=== PATIENT | male | born 1955 | race Caucasian/White ===

== ENCOUNTER 2020-03-19 08:46 | Outpatient (REF) | payer MEDICARE, OTHER, SELFPAY ==
[2020-03-19 10:03] LABS: MANUAL DIFF FLAG NO
[2020-03-19 10:12] LABS: Basophils Percent Auto 0.9 % (0-2); Eosinophils Absolute Auto 0.7 X10*3/uL (0.0-0.4); Eosinophils Percent Auto 14.6 % (0-4); Hematocrit 38.7 % (42-52); Hemoglobin 12.9 g/dl (14.0-18.0); Imm Gran Abs Auto 0.01 X10*3/uL (0.00-0.03); Imm Gran Pct Auto 0.2 % (0.0-0.4); Lymphocytes Absolute Auto 1.2 X10*3/uL (1.2-4.9); Lymphocytes Percent Auto 26.4 % (20-40); Mean Corpuscular HGB Conc 33.3 g/dl (31.0-36.0); Mean Corpuscular Hemoglobin 30.7 pg (27.0-33.0); Mean Corpuscular Volume 92.1 fL (80-98); Mean Platelet Volume 11.9 fL (9.4-12.4); Monocytes Absolute Auto 0.5 X10*3/uL (0.1-1.2); Monocytes Percent Auto 11.6 % (2-11); Neutrophils Absolute Auto 2.1 X10*3/uL (2.0-8.3); Neutrophils Percent Auto 46.3 % (45-73); Platelet Count 173 X10*3/uL (160-400); Red Cell Distribution Width 12.2 % (11.0-16.0); White Blood Count 4.6 X10*3/uL (4.8-10.8)
[2020-03-19 10:47] LABS: Alanine Aminotransferase 38 U/L (0-40); Alkaline Phosphatase 269 U/L (39-117); Anion Gap 9 (12-20); Aspartate Amino Transferase 31 U/L (5-37); Bilirubin Total 0.7 mg/dL (0.0-1.0); Blood Urea Nitrogen 17 mg/dL (9-16); Calcium 8.6 mg/dL (8.4-10.2); Carbon Dioxide 31 mmol/L (22-29); Chloride 106 mmol/L (96-108); Cholesterol 141 mg/dL; Estimated Glomerular Filt Rate > 60; Glucose Fasting 113 mg/dL (60-99); HDL Cholesterol 35 mg/dL; LDL Cholesterol Calculated 85 mg/dl; Potassium 4.3 mmol/L (3.3-5.1); Sodium 142 mmol/L (135-145); Total Protein 6.8 g/dL (6.5-8.0); Triglycerides 106 mg/dL
[2020-03-19 11:06] LABS: Free T4 (Free Thyroxine) 0.86 ng/dL (0.71-1.85); Prostate Specific Antigen Scr 0.83 ng/mL (<0.05-4.0)
== END 2020-03-19 08:47 | disposition home or self-care (01) ==
LOC: HO.10HDL 08:46
PROVIDERS: Visit Provider Internal Medicine
DX: I48.0 Paroxysmal atrial fibrillation (principal); I10 Essential (primary) hypertension; R35.1 Nocturia; E78.5 Hyperlipidemia, unspecified; Z12.5 Encounter for screening for malignant neoplasm of prostate
CPT/HCPCS: 36415; 80053; 80061; 84153; 84439; 84443; 85025

== ENCOUNTER → 2020-04-08 13:24 | Outpatient (REF) | payer MEDICARE, OTHER, SELFPAY ==
--- NOTE | 2020-04-08 13:35 | ECG_ITS ---
Hook-up date: 2020-04-08 13:45:00 Duration: 26:00:00 Test Indications: PALPITATIONS Medications: 59720 QRS complexes 141 Ventricular ectopics which represent <1 % of total QRS comp. 1016 Supraventricular ectopics which represent 1 % of total QRS comp. * Paced QRS complexs which represent % of total QRS comp. VENTRICULAR ECTOPY 132 Isolated 0 Bigeminal Cycles 3 Couplets 1 Runs 3 Beats in Runs 3 Beats LONGEST at 189 BPM at 15:59:26 2020-04-08 3 Beats FASTEST at 189 BPM at 15:59:26 2020-04-08 SUPRAVENTRICULAR ECTOPY 960 Isolated 14 Couplets 6 Runs 28 Beats in Runs 7 Beats LONGEST at 128 BPM at 22:44:03 2020-04-08 7 Beats FASTEST at 145 BPM at 06:05:24 2020-04-09 HEART RATES 45 MIN at 04:40:02 2020-04-09 63 AVG 111 MAX at 06:41:11 2020-04-09 LONGEST RR 1.4960 secs at 04:39:56 2020-04-09 S-T LEVELS Channel 1 - 128 mm at 13:45:00 2020-04-08 - 128 mm at 13:45:00 2020-04-08 Channel 2 - 128 mm at 13:45:00 2020-04-08 - 128 mm at 13:45:00 2020-04-08 Channel 3 - 128 mm at 03:30:41 -- - 128 mm at 03:30:41 pt c/o palp. Baseline rhythm is sinus. min hr is 45 and max hr is 111 Occ PVC's noted, one couplet and one triplet. Several short bursts of SVT noted-one of 5 beats;two of 7 beats; no diary entries wewre provided with this study. In summary, occ PVC's and short runs of PAC's were recorded without reported symptoms. no sustained prolonged symptomatic events thtat would require intervention. Continue to follow for any symptoms but no intervention at this time Referred By: Chito Walters Overread By: NASIR WALTERS MD
== END ==
LOC: HO.CARD 13:24
PROVIDERS: PCP Internal Medicine; Visit Provider Internal Medicine
DX: R00.2 Palpitations (principal)
CPT/HCPCS: 93225; 93226

== ENCOUNTER 2020-09-15 13:50 | Outpatient (REF) | payer MEDICARE, OTHER, SELFPAY ==
[2020-09-15 14:53] LABS: Estimated Average Glucose 126 mg/dL
[2020-09-15 15:07] LABS: Anion Gap 12 (12-20); Blood Urea Nitrogen 15 mg/dL (9-16); Calcium 9.2 mg/dL (8.4-10.2); Carbon Dioxide 26 mmol/L (22-29); Chloride 108 mmol/L (96-108); Estimated Glomerular Filt Rate > 60; Glucose Random 84 mg/dL (60-115); Potassium 4.4 mmol/L (3.3-5.1); Sodium 142 mmol/L (135-145)
== END 2020-09-15 13:51 | disposition home or self-care (01) ==
LOC: HO.LAB 13:50
PROVIDERS: PCP Internal Medicine; Visit Provider Internal Medicine
DX: I10 Essential (primary) hypertension (principal); R73.03 Prediabetes
CPT/HCPCS: 36415; 80048; 83036

== ENCOUNTER → 2021-07-06 08:05 | Outpatient (BNVA) | payer MEDICARE, OTHER, SELFPAY | PROVIDERS: PCP Internal Medicine; Visit Provider Orthopaedic Surgery | DX: M67.442 Ganglion, left hand (principal) | CPT/HCPCS: 20612; 99202 ==

== ENCOUNTER 2021-07-07 11:31 | Outpatient (REF) | payer MEDICARE, OTHER, SELFPAY ==
[2021-07-07 11:46] LABS: MANUAL DIFF FLAG NO
[2021-07-07 12:06] LABS: Basophils Percent Auto 0.5 % (0-2); Eosinophils Absolute Auto 0.2 X10*3/uL (0.0-0.4); Eosinophils Percent Auto 5.9 % (0-4); Hematocrit 40.4 % (42.0-52.0); Hemoglobin 13.4 g/dl (14.0-18.0); Lymphocytes Absolute Auto 1.1 X10*3/uL (1.2-4.9); Lymphocytes Percent Auto 29.9 % (20-40); Mean Corpuscular HGB Conc 33.2 g/dl (31.0-36.0); Mean Corpuscular Volume 93.5 fL (80.0-98.0); Mean Platelet Volume 11.5 fL (9.4-12.4); Monocytes Absolute Auto 0.6 X10*3/uL (0.1-1.2); Monocytes Percent Auto 17.1 % (2-11); Neutrophils Absolute Auto 1.7 x10*3/uL (2.0-8.3); Neutrophils Percent Auto 46.6 % (45-73); Platelet Count 194 X10*3/uL (160-400); Red Blood Count 4.32 X10*6/uL (4.60-5.80); Red Cell Distribution Width 12.7 % (11.0-16.0); White Blood Count 3.7 X10*3/uL (4.8-10.8)
[2021-07-07 12:36] LABS: Alanine Aminotransferase 32 U/L (0-40); Alkaline Phosphatase 279 U/L (39-117); Anion Gap 11 (12-20); Aspartate Amino Transferase 31 U/L (5-37); Bilirubin Total 0.5 mg/dL (0.0-1.0); Blood Urea Nitrogen 15 mg/dL (9-16); Calcium 9.6 mg/dL (8.4-10.2); Carbon Dioxide 31 mmol/L (22-29); Chloride 106 mmol/L (96-108); Cholesterol 138 mg/dL; Estimated Glomerular Filt Rate > 60; Glucose Fasting 108 mg/dL (60-99); HDL Cholesterol 36 mg/dL; LDL Cholesterol Calculated 85 mg/dl; Potassium 4.2 mmol/L (3.3-5.1); Sodium 144 mmol/L (135-145); Total Protein 7.2 g/dL (6.5-8.0); Triglycerides 87 mg/dL
[2021-07-07 12:55] LABS: Prostate Specific Antigen 1.11 ng/mL (<0.05-4.0)
== END 2021-07-07 11:32 | disposition home or self-care (01) ==
LOC: HO.LAB 11:31
PROVIDERS: PCP Internal Medicine; Visit Provider Internal Medicine
DX: Z12.5 Encounter for screening for malignant neoplasm of prostate (principal); E78.00 Pure hypercholesterolemia, unspecified; I10 Essential (primary) hypertension; I48.91 Unspecified atrial fibrillation
CPT/HCPCS: 36415; 80053; 80061; 84153; 85025

== ENCOUNTER 2021-08-22 10:32 | Day surgery (SDC) | payer MEDICARE, OTHER, SELFPAY ==
[2021-08-22 12:53] VITALS: BP 151/75; PULSE 57; RESP 16; TEMP 36.6; O2SAT 97; BMI 30.9
--- NOTE | 2021-08-22 13:47 | MHC.SHP ---
Pre-Procedural Eval Section A Date of Service: 08/22/21 The patient is an INPATIENT: No Changes since office visit: No Cold of Flu in the past 2 weeks, No New Medical Problems, No Changes in Medication and No Patient answered all questions The History & Physical has been completed within 30 days and I have reviewed it.: Yes Section B Chief Complaint: Localized swelling, mass and lump, left upper limb Allergies: Allergies Allergy/AdvReac Type Severity Reaction Status Date / Time No Known Allergies Allergy Unverified 07/06/21 08:11 [No Known Allergies*] Plan I have reviewed the history and physical and performed a pertinent physical examination on my patient. No changes have occurred unless specified.
--- NOTE | 2021-08-22 13:48 | P.OP_ITS ---
Operative Note Operative Note Date of Service: 08/22/21 Narrative: Operative Note Preop diagnosis: 1. left ring finger dorsal soft tissue mass Postop diagnosis: same Procedure: 1. left ring finger dorsal soft tissue mass excisional biopsy Surgeon: Krista Zaidi MD Anesthesia: digital block using 1% lidocaine with epinephrine Findings: soft tissue mass measuring approximately 6 mm in diameter by perhaps 8 mm in length EBL: Less than 5 mL Tourniquet time: None Specimens: left ring finger dorsal soft tissue mass sent for histopathology Complications: None Disposition: Brought to recovery room in stable condition Plan: Follow-up for 7-10 days for wound check and suture removal and to check pathology Indications: The patient is 66 years old, with a left ring finger dorsal soft tissue mass . The risks and benefits of operative treatment including but not limited to risk of damage to blood vessels, nerves, tendons, infection, persistent pain, persistent symptoms, recurrence or possible need for additional surgery were discussed with the patient and the patient wishes to proceed with surgery. Procedure: Once consent was obtained a digital block was performed in the preop area using a combination of 1% lidocaine with epinephrine. The patient was then brought back to the operating suite and placed on the operative table in supine position. A tourniquet was applied to the proximal aspect of the left upper extremity and the limb was prepped and draped in a standard surgical fashion. Once assured that we had a good block, I made a 1.5 cm longitudinally oriented and slightly curved incision over the dorsal radial aspect of the patient's left ring finger extending from the PIP joint proximally. Incision was made through the skin to the subcutaneous tissues using a 15. Blade. I then carefully dissected down to the level of the mass. Was approximately 67 mm in diameter and about 8 mm in length. There was some clear viscous fluid most consistent with a ganglion. It appeared to have a stalk coming from beneath the extensor mechanism on its radial edge, Just proximal to the PIP joint. the mass was carefully dissected from the surrounding tissues, and amputated at its stalk. The mass was placed on the back table to be sent for histopathology. Once satisfied with Our excisional biopsy the wound was copiously irrigated with normal saline and hemostasis was obtained with a brief period of local pressure. The skin edges were reapproximated with some 5.0 nylon suture material and a sterile dressing was applied. The patient appears to have tolerated the procedure well and with no complicati ons. All digits were well vascularized at the conclusion of the case.
== END 2021-08-22 14:33 | disposition home or self-care (01) ==
PROVIDERS: PCP Internal Medicine; Visit Provider Orthopaedic Surgery
PROC: (CPT 26160; principal; 2021-08-22 12:00)
DX: M67.442 Ganglion, left hand (principal); I10 Essential (primary) hypertension; E78.00 Pure hypercholesterolemia, unspecified
CPT/HCPCS: 26160; 88304; J0171

== ENCOUNTER 2022-02-20 07:42 | Outpatient (REF) | payer MEDICARE, OTHER, SELFPAY ==
[2022-02-20 08:09] LABS: MANUAL DIFF FLAG NO
[2022-02-20 08:30] LABS: Basophils Percent Auto 0.8 % (0-2); Eosinophils Absolute Auto 0.3 X10*3/uL (0.0-0.4); Eosinophils Percent Auto 7.8 % (0-4); Hematocrit 39.7 % (42.0-52.0); Hemoglobin 13.4 g/dl (14.0-18.0); Imm Gran Abs Auto 0.01 X10*3/uL (0.00-0.03); Imm Gran Pct Auto 0.3 % (0.0-0.4); Lymphocytes Absolute Auto 1.4 X10*3/uL (1.2-4.9); Lymphocytes Percent Auto 36.4 % (20-40); Mean Corpuscular HGB Conc 33.8 g/dl (31.0-36.0); Mean Corpuscular Hemoglobin 30.6 pg (27.0-33.0); Mean Corpuscular Volume 90.6 fL (80.0-98.0); Mean Platelet Volume 11.8 fL (9.4-12.4); Monocytes Absolute Auto 0.4 X10*3/uL (0.1-1.2); Monocytes Percent Auto 10.4 % (2-11); Neutrophils Absolute Auto 1.7 x10*3/uL (2.0-8.3); Neutrophils Percent Auto 44.3 % (45-73); Platelet Count 176 X10*3/uL (160-400); Red Blood Count 4.38 X10*6/uL (4.60-5.80); White Blood Count 3.9 X10*3/uL (4.8-10.8)
[2022-02-20 09:09] LABS: Alanine Aminotransferase 27 U/L (0-40); Albumin Level 4.1 g/dL (3.5-5.0); Alkaline Phosphatase 282 U/L (39-117); Aspartate Amino Transferase 23 U/L (5-37); Bilirubin Direct 0.2 mg/dL (0.0-0.5); Bilirubin Total 0.6 mg/dL (0.0-1.0); Gamma Glutamyl Transpeptidase 21 U/L (11-51); Iron 77 mcg/dL (45-160); Percent Iron Saturation 24 % (15-50); Total Iron Binding Capacity 325 mcg/dL (228-428); Unsaturated Iron Binding 248 ug/dL
[2022-02-20 09:14] LABS: Ferritin 17 ng/mL (20-250)
[2022-02-20 09:21] LABS: Prothrombin Time 11.7 SEC (10.0-13.1)
[2022-02-20 09:22] LABS: HBS Num1 0.17 mIU/mL (0-7.99); HBc Num1 0.08 S/CO (0.00-0.79); HBsAGNum1 0.37 S/CO (0.00-0.99); Hepatitis B Core Antibody Nonreactive (Nonreactive); Hepatitis B Surface Antigen Negative (Negative); ~Hepatitis B Surface Antibody NONREACTIVE (Nonreactive)
[2022-02-22 13:33] LABS: Anti Nuclear Antibody Screen NEGATIVE (NEGATIVE)
[2022-02-22 14:33] LABS: Alpha 1 Anti-trypsin 133 mg/dL (83-199)
[2022-02-24 14:22] LABS: Smooth Muscle Antibody <20 U (<20)
[2022-02-24 15:45] LABS: Mitochondrial Antibodies NEGATIVE (NEGATIVE)
[2022-02-24 16:03] LABS: FIB-ALT 24 U/L (9-46); FIB-Alpha-2-Macroglobulin 158 mg/dL (106-279); FIB-Apolipoprotein A1 147 mg/dL (94-176); FIB-GGT 17 U/L (3-70); FIB-Haptoglobin 93 mg/dL (43-212); FIB-Total Bilirubin 0.5 mg/dL (0.2-1.2); Liver Fibrosis Score 0.22; Liver Fibrosis Stage F0-F1; Nec Inflam Act Grade A0; Nec Inflam Act Score 0.09
[2022-02-25 14:47] LABS: Alk.Phos Iso. Macrohepatic 0 % (<=0); Alk.Phos Isoenzymes Bone 66 % (28-66); Alk.Phos Isoenzymes Intest 0 % (1-24); Alk.Phos Isoenzymes Liver 34 % (25-69); Alk.Phos Isoenzymes Placental 0 % (<=0); Alk.Phos Isoenzymes Total 240 U/L (35-144)
== END 2022-02-20 07:43 | disposition home or self-care (01) ==
LOC: HO.LAB 07:42
PROVIDERS: PCP Internal Medicine; Visit Provider Internal Medicine
DX: R74.8 Abnormal levels of other serum enzymes (principal); R79.89 Other specified abnormal findings of blood chemistry; R94.5 Abnormal results of liver function studies; Z11.59 Encounter for screening for other viral diseases
CPT/HCPCS: 36415; 80076; 81596; 82103; 82728; 82977; 83540; 84080; 85025; 85610; 86015; 86038; 86039; 86255; 86256; 86704; 86706; 87340

== ENCOUNTER 2022-02-24 09:19 | Outpatient (REF) | payer MEDICARE, OTHER, SELFPAY ==
--- NOTE | ~2022-02-24 | US_ITS ---
EXAMINATION: US COMPLETE ABDOMEN WITH LIVER ELASTOGRAPHY CLINICAL INFORMATION: Elevated alkaline phosphatase level. COMPARISON: None. TECHNIQUE: Real-time imaging of the abdominal viscera. Noninvasive ultrasound liver fibrosis assessment is performed using Kathryn ElastPQ point quantification shear wave elastography (2D-SWE) with a C5-2 MHz transducer. Multiple elastography samples are obtained. FINDINGS: PANCREAS: Limited. The visualized pancreatic head and proximal body are normal in appearance. The remainder of the pancreas is obscured from visualization by the overlying bowel gas. ABDOMINAL AORTA: The proximal, middle, and distal aortic segments are normal in caliber. INFERIOR VENA CAVA: Visualized portions are normal. LIVER: Normal. The liver demonstrates normal size, contour and echogenicity. No focal lesion or intrahepatic biliary duct dilatation. The right lobe measures 16.1 cm in length. The left lobe measures 10.5 cm in length. Portal flow is towards the liver (hepatopetal). Shear wave liver elastography median stiffness is 1.37 m/s (reference: normal median stiffness is 1.3 m/s or less). IQR/median stiffness to assess sampling precision is 0.15 (reference: good quality data set is IQR/median stiffness of 0.15 or less). GALLBLADDER: Normal. The gallbladder is physiologically distended without evidence of stones, sludge, polyps, wall thickening or pericholecystic fluid. COMMON BILE DUCT: Normal in caliber measuring 0.2 cm in diameter. RIGHT KIDNEY: At the upper pole, a 1.4 cm in maximal diameter anechoic, simple cyst is seen. No hydronephrosis. No renal calculi or focal parenchymal lesions. The kidney measures 10.4 cm in maximum dimension. LEFT KIDNEY: At the upper pole, a 2.1 cm in maximal diameter anechoic, simple cyst is seen. No hydronephrosis. No renal calculi or focal parenchymal lesions. The kidney measures 11.2 cm in maximum dimension. SPLEEN: Normal. The spleen measures 10.2 cm in maximum dimension. FREE FLUID: None. US/US abdomen comp w elastography IMPRESSION: 1. There is generalized increase in hepatic echotexture, consistent with fatty infiltration or hepatocellular disease. Please correlate clinically. No focal hepatic mass or intrahepatic biliary dilatation is seen. 2. Liver elastography: In the absence of other known clinical signs, measurements rule out compensated advanced chronic liver disease. If there are known clinical signs, further testing may be needed for confirmation. 3. Benign, simple bilateral renal cysts are incidentally noted. No imaging follow-up is recommended for these. 4. Technically limited ultrasound examination, in particular of the pancreatic tail. REFERENCE: Society of Radiologists in Ultrasound Liver Stiffness Thresholds (2020): LIVER STIFFNESS THRESHOLDS: *Liver Stiffness equal or less than 1.3 m/s: High probability of being normal. *Liver Stiffness less than 1.7 m/s: In the absence of other known clinical signs, rules out compensated advanced chronic liver disease. *Liver Stiffness 1.7-2.1 m/s: Suggestive of compensated advanced chronic liver disease but need further test for confirmation. *Liver Stiffness over 2.1 m/s: Rules in compensated advanced chronic liver disease. *Liver Stiffness over 2.4 m/s: Suggestive of clinically significant portal hypertension. QUALITY OF DATA SET: *IQR/Median value equal or less than 0.15 implies a quality data set. *IQR/Median value over 0.15 implies a poor quality data set. SIGNIFICANT CHANGE FROM PRIOR EXAM: Significant change if liver stiffness measurement is 10% or greater from prior exam. OTHER CONSIDERATIONS: The stage of liver fibrosis may be overestimated in the setting of acute hepatitis, liver inflammation, elevated liver function tests, hepatic vascular congestion, obstructive cholestasis, non-fasting state, and infiltrative diseases such as amyloidosis and lymphoma. In some patients with NAFLD, the liver stiffness thresholds for compensated advanced chronic liver disease may be lower. In causes other than viral hepatitis and NAFLD, liver stiffness thresholds are not well established.
== END 2022-02-24 09:20 | disposition home or self-care (01) ==
LOC: HO.US 09:19
PROVIDERS: PCP Internal Medicine; Visit Provider Internal Medicine
DX: R74.8 Abnormal levels of other serum enzymes (principal)
CPT/HCPCS: 76705; 76981

== ENCOUNTER 2022-03-13 08:24 | Day surgery (SDC) | payer MEDICARE, OTHER, SELFPAY ==
--- NOTE | 2022-03-10 12:33 | P.CONAN_ITS ---
Documented by User: Qi Judge NP 03/10/22 12:40 HPI - Anesthesia Eval Consult details Narrative: 66yo M for Colonoscopy Afib s/p ablation, no OAC now PMFSH Active Problems Active Problems: All Active Problems (Updated 07/06/21 @ 09:20 by Krista Zaidi MD) Ganglion cyst of finger of left hand (Acute) Past Medical History Medical History Afib Depression High blood pressure High cholesterol EDD (obstructive sleep apnea) Social History Social History Patient Tobacco Use Status: Never used Tobacco Use of substances other than those prescribed or required for medical reasons: No Are you DNR?: No Advance Directives: No Advance Directives Information Provided: Yes Current occupational 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: 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 Allergies Allergy/AdvReac Type Severity Reaction Status Date / Time No Known Allergies Allergy Verified 03/13/22 08:31 [No Known Allergies*] Home Medications Medication Instructions Recorded Confirmed Last Taken Type amlodipine 5 mg tablet 5 mg PO DAILY 07/06/21 03/13/22 03/13/22 History atorvastatin 20 mg tablet 20 mg PO DAILY 07/06/21 03/13/22 Unknown History citalopram 10 mg tablet 10 mg PO DAILY 07/06/21 03/13/22 Unknown History hydrochlorothiazide 12.5 mg tablet 12.5 mg PO DAILY 07/06/21 03/13/22 Unknown History lisinopril 20 mg tablet 20 mg PO BID 07/06/21 03/13/22 03/13/22 History Exam Exam Date and Time: March 10, 2022 1233 Pertinent Lab Results Pertinent Lab Results: Laboratory Tests 07/07/21 02/20/22 11:44 08:08 WBC 3.9 L Hgb 13.4 L Hct 39.7 L Plt Count 176 Sodium 144 Potassium 4.2 Chloride 106 Carbon Dioxide 31 H BUN 15 Creatinine 0.84 Assessment and Plan Assessment Anesthesia Assessment: Chart Reviewed Documented by User: Desiree Perera MD 03/13/22 09:04 [facility] Past Medical History Medical History Afib Depression High blood pressure High cholesterol EDD (obstructive sleep apnea) Functional capacity: independent ambulation Family History Family history of problems with anesthesia: No Surgical History History of Problems with Anesthesia: No Social History Social History Patient Tobacco Use Status: Never used Tobacco Use of substances other than those prescribed or required for medical reasons: No Are you DNR?: No Advance Directives: No Advance Directives Information Provided: Yes Current occupational status: 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[employer] Allergies Allergy/AdvReac Type Severity Reaction Status Date / Time No Known Allergies Allergy Verified 03/13/22 08:31 [No Known Allergies*] Home Medications Medication Instructions Recorded Confirmed Last Taken Type amlodipine 5 mg tablet 5 mg PO DAILY 07/06/21 03/13/22 03/13/22 History atorvastatin 20 mg tablet 20 mg PO DAILY 07/06/21 03/13/22 Unknown History citalopram 10 mg tablet 10 mg PO DAILY 07/06/21 03/13/22 Unknown History hydrochlorothiazide 12.5 mg tablet 12.5 mg PO DAILY 07/06/21 03/13/22 Unknown History lisinopril 20 mg tablet 20 mg PO BID 07/06/21 03/13/22 03/13/22 History Exam Airway Mallampati Class: II TM Dist: >3cm Neck ROM: Full Heart: RRR Lungs: CTA Assessment and Plan Final Anesthetic Review Family History of Problems with Anesthesia: No History of Problems with Anesthesia: No ASA Class: II Final Preanesthetic Review: No Changes in Pt Med Stat, Meds/Allgs Chart Reviewed, Consent Obtained/Reviewed and Anes Risks/Benef Reviewed Patient Risk: Low Procedure Risk: Low Anesthetic Plan Anesthetic Plan: MAC: Disposition: Standard PACU
[2022-03-13 08:33] VITALS: BMI 30.5
[2022-03-13 08:42] VITALS: BP 139/79; PULSE 59; RESP 16; TEMP 36.3; O2SAT 96
[2022-03-13] MEDS: Lactated Ringers 1,000 ML 100 ML IVCONT (08:55)
[2022-03-13 10:41] VITALS: BP 93/54; PULSE 51; RESP 16; TEMP 36.2; O2SAT 95
--- NOTE | 2022-03-13 10:45 | PM.OP ---
Brief Operative Note Date of Service: 03/13/22 Pre-op diagnosis: Screening Post-op diagnosis: other (Polyp) Procedure: Colonoscopy to the cecum and TI with biopsy and removal of polyp Surgeon: Wade Das Anesthesia: MAC Was an Director Of Front Office used for this Procedure?: No Estimated blood loss (mL): 2.0 Pathology: other (A. Transverse colon polyp) Condition: stable Disposition: PACU
[2022-03-13 10:57] VITALS: BP 125/70; PULSE 57; RESP 16; O2SAT 95
[2022-03-13 11:12] VITALS: BP 127/68; PULSE 50; RESP 16; TEMP 36.3; O2SAT 96
--- NOTE | 2022-03-13 11:43 | HO.POSTANES ---
Post Anesthesia Evaluation Post Anesthesia Evaluation Vital Signs: Vital Signs Temp Pulse Resp BP Pulse Ox O2 Del Method 03/13/22 11:12 97.4 F 50 16 127/68 96 Room Air 03/13/22 10:57 57 16 125/70 95 Room Air 03/13/22 10:41 97.1 F 51 16 93/54 L 95 Room Air 03/13/22 08:42 97.4 F 59 16 139/79 96 Room Air Anesthesia: Monitored Mental Status: Awake Pain Control: Satisfactory Nausea/Vomiting: None Hydration: Adequate Anesthesia-Related Issues: No Anes. Related Issues
--- NOTE | 2022-03-13 12:20 | OP_ITS ---
SURGEON: Wade Das MD INDICATIONS: The patient presents for evaluation of colorectal cancer screening and personal history of tubular adenomas of the colon. Full consent has been obtained from him for this, including risks of bleeding and perforation. PREOPERATIVE DIAGNOSIS: POSTOPERATIVE DIAGNOSIS: PROCEDURE PERFORMED: ESTIMATED BLOOD LOSS: COMPLICATIONS: ANESTHESIA: Monitored anesthesia care. ASSISTANTS: SPECIMENS: PROCEDURE: Colonoscopy to the cecum and terminal ileum with biopsy and removal of polyp PREOPERATIVE DIAGNOSES: Colorectal cancer screening and personal history of tubular adenomas of the colon. POSTOPERATIVE DIAGNOSES: Colorectal cancer screening and personal history of tubular adenomas of the colon, small colon polyp, diverticulosis and internal hemorrhoids. PROCEDURE IN DETAIL: The patient was placed in left lateral decubitus position. The digital rectal exam revealed no abnormalities. The Olympus video pediatric colonoscope was entered into the rectum and advanced easily to the cecum. Once in the cecum, I did identify a normal appearing cecal pouch with the appendicial orifice and normal appearing ileocecal valve. The terminal ileum was cannulated and appeared normal. The scope was withdrawn back in the colon. The entire cecum and ileocecal valve appeared normal. The scope was then slowly withdrawn assessing all mucosal surfaces carefully. Preparation was excellent. In the transverse colon was a flat approximately 4-mm polyp which was biopsied and completely removed with the cold biopsy forceps. I did not visualize any other polyps, colitis, nor angiodysplasias.. There was a moderate amount of sigmoid diverticulosis. In the rectum, the scope was retroflexed, visualizing internal hemorrhoids, but no other pathology. The rectal mucosa appeared normal. The scope was straightened and withdrawn from the patient. He tolerated the procedure well and was returned to the recovery area in stable condition. IMPRESSION: 1. Small colon polyp. 2. Diverticulosis. 3. Internal hemorrhoids. PLAN: The results of the biopsy will be checked. I would recommend a repeat colonoscopy in 5 years. Of note, he did have a workup recently for an elevated alkaline phosphatase. This does not appear to be related to his liver, given the normal GGTP and alkaline phosphatase isoenzymes showing the upper limit of normal from the bony portion. He did have an ultrasound of the liver which was also unremarkable. The other liver enzymes are all normal besides the alkaline phosphatase. He did have a complete liver workup that was otherwise negative as well. As such I did advise him to follow up with Dr. Lao regarding any other workup that might be needed in regard to the elevated alkaline phosphatase and possible bone disease, even though he is asymptomatic in regard to any bone pain or other musculoskeletal issues. This has all been discussed with his and she was given copies of some of his pertinent labs. MD ANDRA Vogel/KARISHMA / [id number] MTDD
== END 2022-03-13 11:46 | disposition home or self-care (01) ==
PROVIDERS: PCP Internal Medicine; Visit Provider Internal Medicine
PROC: 0DJD8ZZ Inspection of Lower Intestinal Tract, Via Natural or Artificial Opening Endoscopic (ICD-10-PCS; CPT 45378; principal; 2022-03-13 09:30)
DX: Z12.11 Encounter for screening for malignant neoplasm of colon (principal); K63.5 Polyp of colon; Z86.010 Personal history of colon polyps; K57.30 Diverticulosis of large intestine without perforation or abscess without bleeding; K64.8 Other hemorrhoids; R74.8 Abnormal levels of other serum enzymes
CPT/HCPCS: 45380; 88305

== ENCOUNTER 2022-09-11 10:04 | Outpatient (REF) | payer MEDICARE, OTHER, SELFPAY ==
[2022-09-11 10:35] LABS: MANUAL DIFF FLAG NO
[2022-09-11 10:42] LABS: Basophils Percent Auto 0.6 % (0-2); Eosinophils Absolute Auto 0.3 X10*3/uL (0.0-0.4); Hematocrit 40.6 % (42.0-52.0); Hemoglobin 13.5 g/dl (14.0-18.0); Imm Gran Abs Auto 0.01 X10*3/uL (0.00-0.03); Imm Gran Pct Auto 0.2 % (0.0-0.4); Lymphocytes Absolute Auto 1.3 X10*3/uL (1.2-4.9); Lymphocytes Percent Auto 24.8 % (20-40); Mean Corpuscular HGB Conc 33.3 g/dl (31.0-36.0); Mean Corpuscular Hemoglobin 30.6 pg (27.0-33.0); Mean Corpuscular Volume 92.1 fL (80.0-98.0); Monocytes Absolute Auto 0.5 X10*3/uL (0.1-1.2); Monocytes Percent Auto 8.9 % (2-11); Neutrophils Absolute Auto 3.1 x10*3/uL (2.0-8.3); Neutrophils Percent Auto 60.5 % (45-73); Platelet Count 194 X10*3/uL (160-400); Red Blood Count 4.41 X10*6/uL (4.60-5.80); Red Cell Distribution Width 12.4 % (11.0-16.0); White Blood Count 5.2 X10*3/uL (4.8-10.8)
[2022-09-11 13:01] LABS: Alanine Aminotransferase 25 U/L (0-40); Albumin Level 4.1 g/dL (3.5-5.0); Alkaline Phosphatase 282 U/L (39-117); Anion Gap 16 (12-20); Aspartate Amino Transferase 25 U/L (5-37); Bilirubin Total 0.5 mg/dL (0.0-1.0); Blood Urea Nitrogen 16 mg/dL (9-16); Calcium 9.2 mg/dL (8.4-10.2); Carbon Dioxide 23 mmol/L (22-29); Chloride 109 mmol/L (96-108); Cholesterol 154 mg/dL; Estimated Glomerular Filt Rate > 60; Glucose Fasting 119 mg/dL (60-99); HDL Cholesterol 48 mg/dL; LDL Cholesterol Calculated 95 mg/dl; Potassium 4.1 mmol/L (3.3-5.1); Sodium 144 mmol/L (135-145); Total Protein 7.3 g/dL (6.5-8.0); Triglycerides 58 mg/dL
[2022-09-11 13:21] LABS: Prostate Specific Antigen Scr 1.47 ng/mL (<0.05-4.0)
== END 2022-09-11 10:05 | disposition home or self-care (01) ==
LOC: HO.10HDL 10:04
PROVIDERS: Visit Provider Internal Medicine
DX: Z00.00 Encounter for general adult medical examination without abnormal findings (principal); Z12.5 Encounter for screening for malignant neoplasm of prostate; E78.00 Pure hypercholesterolemia, unspecified; I10 Essential (primary) hypertension; Z86.79 Personal history of other diseases of the circulatory system
CPT/HCPCS: 36415; 80053; 80061; 84153; 85025

== ENCOUNTER 2023-01-30 09:05 | Outpatient (REF) | payer MEDICARE, OTHER, SELFPAY ==
[2023-01-30 10:48] LABS: MANUAL DIFF FLAG NO
[2023-01-30 10:55] LABS: Basophils Percent Auto 0.7 % (0-2); Eosinophils Absolute Auto 0.4 X10*3/uL (0.0-0.4); Hematocrit 39.7 % (42.0-52.0); Hemoglobin 13.3 g/dl (14.0-18.0); Imm Gran Abs Auto 0.01 X10*3/uL (0.00-0.03); Imm Gran Pct Auto 0.2 % (0.0-0.4); Lymphocytes Absolute Auto 1.2 X10*3/uL (1.2-4.9); Lymphocytes Percent Auto 28.8 % (20-40); Mean Corpuscular HGB Conc 33.5 g/dl (31.0-36.0); Mean Corpuscular Hemoglobin 31.1 pg (27.0-33.0); Mean Corpuscular Volume 92.8 fL (80.0-98.0); Mean Platelet Volume 11.7 fL (9.4-12.4); Monocytes Absolute Auto 0.5 X10*3/uL (0.1-1.2); Monocytes Percent Auto 10.7 % (2-11); Neutrophils Absolute Auto 2.1 x10*3/uL (2.0-8.3); Neutrophils Percent Auto 49.6 % (45-73); Platelet Count 190 X10*3/uL (160-400); Red Blood Count 4.28 X10*6/uL (4.60-5.80); Red Cell Distribution Width 12.8 % (11.0-16.0); White Blood Count 4.3 X10*3/uL (4.8-10.8)
[2023-01-30 11:00] LABS: Estimated Average Glucose 131 mg/dL; Hemoglobin A1c % 6.2 % (<6.0)
[2023-01-30 11:06] LABS: Anion Gap 10 (12-20); Blood Urea Nitrogen 12 mg/dL (9-16); Calcium 9.1 mg/dL (8.4-10.2); Carbon Dioxide 30 mmol/L (22-29); Chloride 105 mmol/L (96-108); Estimated Glomerular Filt Rate > 60; Glucose Random 180 mg/dL (60-115); Iron 170 mcg/dL (45-160); Percent Iron Saturation 56 % (15-50); Potassium 3.9 mmol/L (3.3-5.1); Sodium 141 mmol/L (135-145); Total Iron Binding Capacity 305 mcg/dL (228-428); Unsaturated Iron Binding 135 ug/dL
== END 2023-01-30 09:06 | disposition home or self-care (01) ==
LOC: HO.10HDL 09:05
PROVIDERS: Visit Provider Internal Medicine
DX: D64.9 Anemia, unspecified (principal); R73.01 Impaired fasting glucose
CPT/HCPCS: 36415; 80048; 83036; 83540; 85025

== ENCOUNTER 2023-08-07 08:08 | Outpatient (REF) | payer MEDICARE, OTHER, SELFPAY ==
[2023-08-07 11:09] LABS: Estimated Average Glucose 123 mg/dL; Hemoglobin A1c % 5.9 % (<6.0)
[2023-08-07 11:14] LABS: Anion Gap 12 (12-20); Blood Urea Nitrogen 14 mg/dL (9-16); Calcium 9.3 mg/dL (8.4-10.2); Carbon Dioxide 28 mmol/L (22-29); Chloride 106 mmol/L (96-108); Estimated Glomerular Filt Rate > 60; Glucose Random 108 mg/dL (60-115); Potassium 4.2 mmol/L (3.3-5.1); Sodium 142 mmol/L (135-145)
== END 2023-08-07 08:09 | disposition home or self-care (01) ==
LOC: HO.10HDL 08:08
PROVIDERS: Visit Provider Internal Medicine
DX: E11.9 Type 2 diabetes mellitus without complications (principal); I10 Essential (primary) hypertension
CPT/HCPCS: 36415; 80048; 83036

== ENCOUNTER 2023-11-01 12:54 | Outpatient (AMB) | payer MEDICARE, OTHER, SELFPAY ==
--- NOTE | 2023-11-01 12:55 | MHC.OFFVIS ---
Vital Signs 11/01/23 12:58 Height 6 ft Weight 204 lb BMI 27.7 Intake Visit Reasons: Inguinal hernia Intake Note: This patient presents for Inguinal hernia. Pt c/o; right groin, reports no pain, reports bulge. Human Capital Analyst Required: No Accompanied by: Self / Same As Patient Allergies No Known Allergies [No Known Allergies*] Allergy (Verified 11/01/23 12:55) Medication List - Last Reconciled 11/01/23 by Chito Slade MD amlodipine 5 mg PO DAILY atorvastatin 20 mg PO DAILY citalopram 10 mg PO DAILY hydrochlorothiazide 12.5 mg PO DAILY lisinopril 20 mg PO BID HPI HPI Inguinal hernia: Details: 68-year-old male referred for right inguinal hernia. He has noticed this reducible mass on the right groin for about over a week now. He saw his primary care physician recently and showed this and he was referred to me He denies significant pain. He does have a little bit discomfort. He denies GI complaints He has a history of atrial fibrillation and had ablation before. He is not on any blood thinners. He is active and does a lot of bowling. 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 Review of Systems Const Denies chills and Denies fever(s) Card Denies chest pain, Denies dyspnea and Denies dyspnea on exertion Resp Denies cough, Denies dyspnea and Denies dyspnea on exertion GI Denies hematochezia and Denies change in bowel habits Denies hematuria and Denies difficulty urinating Musc Denies back pain and Denies limited range of motion Neuro Denies focal weakness and Denies convulsions Psych Denies depression and Denies mood swings Physical Exam Const General: comfortable and no acute distress Orientation/consciousness: patient oriented x3 Neck Neck: Yes no lymphadenopathy Resp Auscultation: clear to auscultation bilaterally Cardio Rhythm: regular rhythm GI Other: Right inguinal hernia, reducible, nontender Palpation (GI): Soft to palpation, nontender and no guarding Neuro General: patient oriented x3 Assessment & Plan Assessment & Plan (1) Right inguinal hernia: Code(s): K40.90 - Unilateral inguinal hernia, without obstruction or gangrene, not specified as recurrent Category: Medical Plan He has a reducible right inguinal hernia. He wants this repaired. I explained to him the technique of repair of right inguinal hernia. I reviewed the risks including but not limited to bleeding, infections, injury to other organs including bowel and the vas deferens, recurrence, postop pain, hematoma, blood clots, as well as the benefits and alternatives. I reviewed with him what to expect postoperatively. He has given consent. Coding Level of Care Code New Pt Level 3 (07443) Diagnoses Right inguinal hernia K40.90
[2023-11-01 12:58] VITALS: BMI 27.7
== END 2023-11-01 13:15 | disposition home or self-care (01) ==
PROVIDERS: PCP Internal Medicine; Visit Provider Surgery
DX: K40.90 Unilateral inguinal hernia, without obstruction or gangrene, not specified as recurrent (principal)
CPT/HCPCS: 99203

== ENCOUNTER → 2023-11-01 12:54 | Outpatient (BNVA) | payer MEDICARE, OTHER, SELFPAY | PROVIDERS: PCP Internal Medicine; Visit Provider Surgery | DX: K40.90 Unilateral inguinal hernia, without obstruction or gangrene, not specified as recurrent (principal) | CPT/HCPCS: 99202 ==

== ENCOUNTER 2023-11-09 08:38 | Outpatient (REF) | payer MEDICARE, OTHER, SELFPAY ==
[2023-11-09 08:54] LABS: MANUAL DIFF FLAG NO
[2023-11-09 09:04] LABS: Basophils Percent Auto 0.6 % (0-2); Eosinophils Absolute Auto 0.3 X10*3/uL (0.0-0.4); Eosinophils Percent Auto 6.2 % (0-4); Hematocrit 39.9 % (42.0-52.0); Hemoglobin 13.4 g/dl (14.0-18.0); Imm Gran Abs Auto 0.01 X10*3/uL (0.00-0.03); Imm Gran Pct Auto 0.2 % (0.0-0.4); Lymphocytes Absolute Auto 1.3 X10*3/uL (1.2-4.9); Lymphocytes Percent Auto 28.6 % (20-40); Mean Corpuscular HGB Conc 33.6 g/dl (31.0-36.0); Mean Corpuscular Hemoglobin 31.1 pg (27.0-33.0); Mean Corpuscular Volume 92.6 fL (80.0-98.0); Mean Platelet Volume 11.3 fL (9.4-12.4); Monocytes Absolute Auto 0.5 X10*3/uL (0.1-1.2); Monocytes Percent Auto 11.3 % (2-11); Neutrophils Absolute Auto 2.5 x10*3/uL (2.0-8.3); Neutrophils Percent Auto 53.1 % (45-73); Platelet Count 185 X10*3/uL (160-400); Red Blood Count 4.31 X10*6/uL (4.60-5.80); Red Cell Distribution Width 12.4 % (11.0-16.0); White Blood Count 4.7 X10*3/uL (4.8-10.8)
[2023-11-09 09:30] LABS: Estimated Average Glucose 123 mg/dL; Hemoglobin A1c % 5.9 % (<6.0)
[2023-11-09 09:35] LABS: Alanine Aminotransferase 23 U/L (0-40); Alkaline Phosphatase 277 U/L (39-117); Anion Gap 9 (12-20); Aspartate Amino Transferase 25 U/L (5-37); Bilirubin Total 0.8 mg/dL (0.0-1.0); Blood Urea Nitrogen 16 mg/dL (9-16); Calcium 9.7 mg/dL (8.4-10.2); Carbon Dioxide 32 mmol/L (22-29); Chloride 106 mmol/L (96-108); Cholesterol 156 mg/dL (<200); Estimated Glomerular Filt Rate > 60; Glucose Fasting 111 mg/dL (60-99); HDL Cholesterol 41 mg/dL (>40); LDL Cholesterol Calculated 92 mg/dL (<100); Sodium 143 mmol/L (135-145); Total Protein 7.6 g/dL (6.5-8.0); Triglycerides 117 mg/dL (<150)
[2023-11-09 09:50] LABS: Prostate Specific Antigen 1.78 ng/mL (<0.05-4.0)
[2023-11-09 12:32] LABS: Appearance Urine Clear; Color Urine Dark Yellow; Glucose Urine UA Negative (Negative); Leukocyte Esterase Urine Negative (Negative); Nitrite Urine Negative (Negative); Urine Blood Negative (Negative); Urine Ketones Negative (Negative); Urine Protein Negative (Neg-Trace)
== END 2023-11-09 08:39 | disposition home or self-care (01) ==
LOC: HO.LAB 08:38
PROVIDERS: PCP Internal Medicine; Visit Provider Internal Medicine
DX: I10 Essential (primary) hypertension (principal); E78.00 Pure hypercholesterolemia, unspecified; Z12.5 Encounter for screening for malignant neoplasm of prostate; E11.9 Type 2 diabetes mellitus without complications
CPT/HCPCS: 36415; 80053; 80061; 81003; 83036; 84153; 85025

== ENCOUNTER 2023-12-11 08:25 | Day surgery (SDC) | payer MEDICARE, OTHER, SELFPAY ==
[2023-12-07 15:36] VITALS: BMI 27.9
--- NOTE | 2023-12-10 10:00 | P.CONAN_ITS ---
Documented by User: Qi Judge NP 12/10/23 10:04 HPI - Anesthesia Eval Consult details Narrative: 68yo M for Right Hernia Inguinal Reducible with mesh Medically optimized per PCP Afib s/p ablation 2019 [facility]LY [facility] Active Problems Active Problems: All Active Problems Ganglion cyst of finger of left hand (Acute) Right inguinal hernia (Acute) Past Medical History Medical History Right inguinal hernia EDD (obstructive sleep apnea) Afib Depression High blood pressure High cholesterol Family History Family history of problems with anesthesia: No Surgical History Surgical History History of cardiac radiofrequency ablation (RFA) (~2019) Hx of bilateral cataract extraction Hx of colonoscopy History of Problems with Anesthesia: No Social History Social History Household Members: Spouse Housing: House Are you a primary career services coordinator to a significant other at home: No Do you presently have visiting nurse or other home services: No Patient Tobacco Use Status: Never used Tobacco Use of substances other than those prescribed or required for medical reasons: No Have you been hit, kicked, punched, or otherwise hurt by someone within the past year? 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 Meds Allergies Allergy/AdvReac Type Severity Reaction Status Date / Time No Known Allergies Allergy Verified 12/11/23 08:45 [No Known Allergies*] Home Medications ?Medication ?Instructions ?Recorded ?Confirmed ?Last Taken ?Type amlodipine 5 mg tablet 5 mg PO DAILY 07/06/21 12/07/23 12/11/23 History atorvastatin 20 mg tablet 20 mg PO DAILY 07/06/21 12/07/23 Unknown History citalopram 10 mg tablet 10 mg PO DAILY 07/06/21 12/07/23 12/11/23 History hydrochlorothiazide 12.5 mg tablet 12.5 mg PO DAILY 07/06/21 12/07/23 Unknown History lisinopril 20 mg tablet 20 mg PO BID 07/06/21 12/07/23 03/13/22 History Exam Height,Weight and Vital Signs: Height 6 ft Weight 93.44 kg Pertinent Lab Results Pertinent Lab Results: Laboratory Tests 11/09/23 08:53 WBC 4.7 L Hgb 13.4 L Hct 39.9 L Plt Count 185 Sodium 143 Potassium 4.0 Chloride 106 Carbon Dioxide 32 H BUN 16 Creatinine 0.78 Assessment and Plan Assessment Anesthesia Assessment: Chart Reviewed Final Anesthetic Review Family History of Problems with Anesthesia: No History of Problems with Anesthesia: No Documented by User: Kerri Ferrara MD 12/11/23 10:06 PMFSH Past Medical History Medical History Right inguinal hernia EDD (obstructive sleep apnea) Afib Depression High blood pressure High cholesterol Surgical History Surgical History History of cardiac radiofrequency ablation (RFA) (~2019) Hx of bilateral cataract extraction Hx of colonoscopy Social History Social History Household Members: Spouse Housing: House Are you a primary career services coordinator to a significant other at home: No Do you presently have visiting nurse or other home services: No Patient Tobacco Use Status: Never used Tobacco Use of substances other than those prescribed or required for medical reasons: No Have you been hit, kicked, punched, or otherwise hurt by someone within the past year? 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 Meds Allergies Allergy/AdvReac Type Severity Reaction Status Date / Time No Known Allergies Allergy Verified 12/11/23 08:45 [No Known Allergies*] Home Medications ?Medication ?Instructions ?Recorded ?Confirmed ?Last Taken ?Type amlodipine 5 mg tablet 5 mg PO DAILY 07/06/21 12/07/23 12/11/23 History atorvastatin 20 mg tablet 20 mg PO DAILY 07/06/21 12/07/23 Unknown History citalopram 10 mg tablet 10 mg PO DAILY 07/06/21 12/07/23 12/11/23 History hydrochlorothiazide 12.5 mg tablet 12.5 mg PO DAILY 07/06/21 12/07/23 Unknown History lisinopril 20 mg tablet 20 mg PO BID 07/06/21 12/07/23 03/13/22 History Exam Airway Mallampati Class: III TM Dist: >3cm Neck ROM: Full Loose/Missing/Broken Teeth: No Heart: RRR Lungs: CTA Assessment and Plan Assessment Anesthesia Assessment: Anesthesia Plan Discussed Final Anesthetic Review NPO: Yes ASA Class: III Final Preanesthetic Review: Meds/Allgs Chart Reviewed, Consent Obtained/Reviewed and Anes Risks/Benef Reviewed Patient Risk: Intermediate Procedure Risk: Low Anesthetic Plan Anesthetic Plan: GA Disposition: Standard PACU
[2023-12-11] VITALS (8 sets, daily range): BP systolic 122–151; BP diastolic 60–73; PULSE 41–52; RESP 14–18; TEMP 36.1–36.6; O2SAT 97–100
[2023-12-11] MEDS: Lactated Ringers 1,000 ML 100 ML IVCONT (09:06)
--- NOTE | 2023-12-11 09:40 | MHC.SHP ---
Pre-Procedural Eval Section A - 24 Hr Update-Section A only Date of Service: 12/11/23 Section B - Complete if H&P > 30 days Chief Complaint: Unilateral inguinal hernia, without obstruction Details of Present Illness: Has a reducible right inguinal hernia with discomfort Relevant Social History: None Present Medications: see Short Stay Collaborative assessment Medical History: Significant History (AFib in the past) History of Previous Operations: No relevant previous surgery Allergies: Allergies Allergy/AdvReac Type Severity Reaction Status Date / Time No Known Allergies Allergy Verified 12/11/23 08:45 [No Known Allergies*] Review of Systems Sugical H&P ROS: Negative: Cardiovascular, Respiratory and Gastrointestinal Exam Surgical H&P Exam: Normal: Heart and Normal: Lungs and Significant Findings: Abdomen (Reducible right inguinal) Plan Diagnosis/Plan: Unchanged I have reviewed the history and physical and performed a pertinent physical examination on my patient. No changes have occurred unless specified. Time Spent With Patient Time: Total time managing care of this patient today ____ minutes.
--- NOTE | 2023-12-11 10:45 | W.PM.OPN ---
Operative Note Operative Note Date of Service: 12/11/23 Narrative: Preop diagnosis: Right inguinal hernia Postop diagnosis: Right inguinal hernia, reducible, direct Procedure: Repair of right inguinal hernia with mesh Surgeon: Chito Slade MD [employer] Nurse: POOJA Cam The patient is a 68-year-old male with a reducible mass in the right groin consistent with an inguinal hernia. He understood the technique of the planned procedure as well as the risks, benefits, and alternatives. He was brought to the operating room. He was placed supine under general anesthesia via laryngeal mask airway. The right groin was prepped and draped in the usual sterile fashion. A surgical time-out was done. The patient received cefazolin 2 g IV preoperatively I infiltrated the planned line of incision with lidocaine 1%. I made a short incision on the skin along an imaginary line from the anterior superior iliac spine to the pubic ramus using blade 15. This was carried down through the full-thickness of the skin subcutaneous fat down to the fascia. The external oblique aponeurosis visualized and was bluntly dissected. This allowed us to define the external ring. I made a short incision on the external oblique aponeurosis overlying the inguinal canal with a blade 15. This was extended inferomedially to connect with the external ring. The inguinal canal was therefore entered. I bluntly dissected the spermatic cord and its contents with the index finger until I was able to pass a Beti drain around this. This Beti drain was used for retraction. I identified the vas deferens and the accompanying vessels. Large hernia sac was seen on the floor of the canal consistent with a direct hernia. I sharply dissected this off of the rest of the cord contents until was able to completely separate this. I reinforced this direct hernia with a large size Prolene plug. The plug was secured to the shelving edge of the inguinal meant laterally and the internal oblique superiorly and medially with Prolene 2 sutures with the inner leaves of the plug I reinforced the entire floor of the canal with a keyhole mesh. The tails of the mesh were passed around the cord at the level of the internal ring and were secured together with Prolene 2 sutures. I flattened the mesh. I secured the mesh to the shelving edge of the inguinal laterally, internal oblique medially as well as the pubic ramus inferomedially. The [place] drain was released I then closed the external oblique aponeurosis with a running Polysorb 2-0 stitch to re-create the external ring. The subcutaneous layer was reapposed with Polysorb 3-0 simple interrupted sutures. Skin closure was achieved with Polysorb 4-0 subcuticular running sutures. Steri-Strips and dressings were applied. Incision was infiltrated with Marcaine 0.5% for postop analgesia. The procedure was completed. The patient tolerated the procedure well. There were no immediate complications. Initial and final counts of sponges and instruments were correct. Estimated blood loss was about 5 cc The patient was extubated without difficulty and transferred to the recovery room with stable vital signs.
== END 2023-12-11 12:42 | disposition home or self-care (01) ==
PROVIDERS: PCP Internal Medicine; Visit Provider Surgery
PROC: (CPT 49505; principal; 2023-12-11 10:30)
DX: K40.90 Unilateral inguinal hernia, without obstruction or gangrene, not specified as recurrent (principal); I48.91 Unspecified atrial fibrillation; I10 Essential (primary) hypertension; E78.00 Pure hypercholesterolemia, unspecified; G47.33 Obstructive sleep apnea (adult) (pediatric); F32.A Depression, unspecified; Z79.899 Other long term (current) drug therapy
CPT/HCPCS: 49505; C1781; J0690; J1100; J1885; J2003; J2250; J2405; J2704; J2795; J3010

== ENCOUNTER → 2023-12-11 08:25 | Outpatient (BNV) | payer MEDICARE, OTHER, SELFPAY | PROVIDERS: PCP Internal Medicine; Visit Provider Surgery | DX: K40.90 Unilateral inguinal hernia, without obstruction or gangrene, not specified as recurrent (principal) | CPT/HCPCS: 49505 ==

== ENCOUNTER 2023-12-24 10:38 | Outpatient (AMB) | payer MEDICARE, OTHER, SELFPAY ==
--- NOTE | 2023-12-24 10:48 | MHC.OFFVIS ---
Vital Signs 12/24/23 10:52 Height 6 ft Weight 211 lb BMI 28.6 Intake Visit Reasons: S/P RIH w/mesh Intake Note: This patient presents for post-op assessment status post right inguinal hernia repair with mesh. Pt c/o; reports no complaints pertaining to surgery. Potato Picker Required: No Accompanied by: Self / Same As Patient Allergies No Known Allergies [No Known Allergies*] Allergy (Verified 12/24/23 10:48) HPI HPI S/P RIH w/mesh: Details: He underwent repair of right inguinal hernia with mesh last 12/11/2023. He tolerated the procedure well. He currently denies significant complaints. 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 occupational status: 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 He is doing very well. The incision is well healed. The repair site is intact. I advised him to avoid lifting anything more than 20 lb for about 2 more weeks. He can otherwise follow up on a p.r.n. basis. Coding Level of Care Code Global (36421) Diagnoses Right inguinal hernia K40.90
[2023-12-24 10:52] VITALS: BMI 28.6
== END 2023-12-24 11:02 | disposition home or self-care (01) ==
PROVIDERS: PCP Internal Medicine; Visit Provider Surgery
DX: K40.90 Unilateral inguinal hernia, without obstruction or gangrene, not specified as recurrent (principal)
CPT/HCPCS: 99024

== ENCOUNTER → 2023-12-24 10:38 | Outpatient (BNVA) | payer MEDICARE, OTHER, SELFPAY | PROVIDERS: PCP Internal Medicine; Visit Provider Surgery | DX: K40.90 Unilateral inguinal hernia, without obstruction or gangrene, not specified as recurrent (principal) | CPT/HCPCS: 99212 ==

== ENCOUNTER 2024-01-04 08:48 | Outpatient (AMB) | payer MEDICARE, OTHER, SELFPAY ==
[2024-01-04 08:56] VITALS: BP 152/88; PULSE 57; O2SAT 97; BMI 28.5
--- NOTE | 2024-01-04 08:56 | A.OFFPC_ITS ---
Vital Signs 01/04/24 08:56 Height 6 ft Weight 210 lb BMI 28.5 BP 152/88 H Blood Pressure Location Lt brachial Position Sitting Pulse 57 Pulse Source Pulse Oximeter Pulse Oximetry (%) 97 Oxygen Delivery Method Room Air Intake Visit Reasons: High blood pressure Allergies No Known Allergies [No Known Allergies*] Allergy (Verified 01/04/24 09:11) Medication List - Last Reconciled 01/04/24 by Adia Christensen PA-C amlodipine 5 mg PO DAILY atorvastatin 20 mg PO DAILY citalopram 10 mg PO DAILY hydrochlorothiazide 12.5 mg PO DAILY ibuprofen 600 mg PO Q6H PRN lisinopril 20 mg PO BID oxycodone-acetaminophen 5-325 mg (Percocet) 1 tab PO Q4-6H PRN Tobacco use date assessed: 01/04/24 Fall risk assessment: No Falls in past year Last assessed Fall Risk: 01/04/24 Dental Screening Dental Screen Date: 01/04/24 Did you have a dental visit in the last 12 months?: Yes Did you have a dental problem in the last 6 months where you did not have access to dental care?: No Was dental information given to patient?: Patient has dentist HPI High blood pressure HPI Details 68-year-old male with past medical histo ry of hypertension, hypercholesterolemia, anxiety, history of AFib s/p ablation and diabetes mellitus coming to the office for the 1st time. Patient was previously being seen by Dr. Lao. In review of the notes patient recently had inguinal hernia repair with Dr. Slade 12/11/2023 and follow up 12/24/2023. Patient states he has no questions or concerns today. He follows with check a [facility] for regular eye exams and has history of cataract surgery. His last colonoscopy was 2016 with follow up in 5 years however he states he is up-to-date and we will reach out to Dr. Das to see if he has had a more recent colonoscopy. He also mentions occasionally in the morning he will have a weak urinary stream. FORMERLY [facility], [facility] Medical History Right inguinal hernia EDD (obstructive sleep apnea) Afib Depression High blood pressure High cholesterol Surgical History S/P hernia surgery History of cardiac radiofrequency ablation (RFA) (~2019) Hx of bilateral cataract extraction Hx of colonoscopy Social History Household Members: Spouse Housing: House Are you a primary healthcare account manager to a significant other at home: No Do you presently have visiting nurse or other home services: No 75 years or older and lives alone: No Patient Tobacco Use Status: Never used Tobacco 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 1. Little interest or pleasure in doing things: not at all 2. Feeling down, depressed, or hopeless: not at all 3. Trouble falling or staying asleep, or sleeping too much: not at all 4. Feeling tired or having little energy: not at all 5. Poor appetite or overeating: not at all 6. Feeling bad about yourself - or that you are a failure or have let yourself or your family down: not at all 7. Trouble concentrating on things, such as reading the newspaper or watching television: not at all 8. Moving or speaking so slowly that other people could have noticed. Or the opposite - being so fidgety or restless that you have been moving around a lot more than usual: not at all 9. Thoughts that you would be better off or of hurting yourself in some way: not at all Total score: 0 Depression Screening Interpretation: Negative Depression Screening Done: Yes 25438 - PHQ-9 Billing: Yes Source: Developed by Drs. Wade Negrete, Salina Ortega, Nicho Bobby and colleagues, with an educational antonio from [employer]. Thrive Questionnaire Date Thrive assessed: 01/04/24 I am a: Patient What is your living situation today?: I have a steady place to live Within the past 12 months, did the food you bought not last and you didn't have the money to get more?: Never true Within the past 12 months, did you worry whether your food would run out before you got money to buy more?: Never true Do you have trouble paying for medicines?: No Do you have trouble getting transportation to medical appointments?: No Do you have trouble paying your heating and electricity bill?: No Do you have trouble taking care of your child, family member or friend?: No Do you have trouble with day-to-day activities such as bathing, preparing meals, shopping, managing finances, etc.?: No Are you currently unemployed and looking for a job?: No Are you interested in more education?: No Please select the resources that you would like help with: None Currently or been in a relationship where the following occur: No concerns reported THRIVE Score: 0 AUDIT C Alcohol Use Questionnaire (AUDIT-C) 1. How often do you have a drink containing alcohol?: 2-4 times a month 2. How many drinks containing alcohol do you have on a typical day when you are drinking?: 1 or 2 3. How often do you have six or more drinks on one occasion?: Never Total Score: 2 MADISYN-7 AMB Questionnaire MADISYN-7 Date MADISYN - 7 assessed: 01/04/24 Feeling nervous, anxious, or on edge: 0 = Not at all Not being able to stop or control worryin = Not at all Worrying too much about different things: 0 = Not at all Trouble relaxin = Not at all Being so restless that it is hard to sit still: 0 = Not at all Becoming easily annoyed or irritable: 0 = Not at all Feeling afraid as if something awful might happen: 0 = Not at all Total MADISYN-7 score (0-4 normal; 5-9 mild; 10-14 moderate; 15-21 severe): 0 Source: Developed by Drs. Wade Negrete, Salina Ortega, Nicho Bobby and colleagues, with an educational antonio from [employer]. Review of Systems Const Denies body aches, Denies chills, Denies fever(s), Denies headache(s) and Denies poor appetite Eyes Reports no additional complaints ENT Denies dysphagia, Denies dizziness, Denies headache(s) and Denies odynophagia Card Denies chest pain, Denies syncope, Denies edema, Denies irregular heart rhythm, Denies lightheadedness and Denies dyspnea Resp Denies cough and Denies dyspnea GI Denies abdominal pain, Denies constipation, Denies dysphagia, Denies diarrhea, Denies nausea, Denies odynophagia and Denies vomiting Reports no additional complaints Musc Reports no additional complaints and Denies abnormal gait Skin/Breast Reports system reviewed and no additional complaints, except as documented Neuro Denies abnormal gait, Denies dizziness, Denies syncope and Denies headache(s) Psych Reports no additional complaints Physical exam (Primary Care) Vital Signs: Oxygen Delivery Method Room Air 01/04/24 08:56 BMI result Body Mass Index 28.5 Tobacco/Smoking Status: Tobacco use Status Patient Tobacco Use Status Never used Tobacco 12/11/23 10:49 Depression Screening Interpretation: Negative Thrive Assessment: Date of Thrive Assessment Date Thrive assessed 11/23/23 12/21/23 11:43 Currently or been in a relationship where the following occur: No concerns reported Const General: cooperative, healthy appearing, comfortable and no acute distress Orientation/consciousness: patient oriented x3 HENMT Head: Yes normocephalic Ears: hearing grossly normal bilaterally General nose exam: Normal external nose present Eyes General: appearance normal, both eyes and all related structures Conjunctivae: conjunctivae normal Neck Neck: Yes full ROM and Yes no lymphadenopathy Resp Effort & Inspection: normal respiratory effort Auscultation: clear to auscultation bilaterally, no crackles, no rales, no rhonchi and no wheezes Cardio Rate: regular rate Rhythm: regular rhythm Skin General skin exam: no rashes or lesions noted Neuro General: patient oriented x3 Gait exam (Neuro): Normal gait present Extrem General: Yes normal to inspection, Yes full ROM and No edema Psych Affect: normal affect Attitude: cooperative Insight: Good insight present (Psych) Judgement: Good judgement present (Psych) Coding Level of Care Code New Pt Level 4 (58176) Diagnoses High cholesterol E78.00 Depression F32.A High blood pressure I10 Afib I48.91 Impaired glucose tolerance R73.02 EDD (obstructive sleep apnea) G47.33 Weak urinary stream R39.12 Additional Codes PHQ-9 - 44520 - PHQ-9 Billing: Yes ([id number]) Assessment & Plan Assessment & Plan (1) High cholesterol: Code(s): E78.00 - Pure hypercholesterolemia, unspecified Category: Medical Plan: Avoid foods that are high in cholesterol such as red meat, fried foods, eggs and baked goods. Triglyceride goal of less than 150 and LDL goal of less than 100. Continue on atorvastatin. (2) Depression: Code(s): F32.A - Depression, unspecified Category: Medical (3) High blood pressure: Code(s): I10 - Essential (primary) hypertension Category: Medical Plan: Continue on current blood pressure medication. Avoid salt intake and encourage h ealthy diet and regular exercise. Currently on amlodipine, lisinopril, hydrochlorothiazide. Blood pressure remains elevated on exam advised patient to take blood pressures at home and reach out to the office if they are above 140/90. Also reached out to nurse navigation for blood pressure check and we will follow up in 6 weeks. (4) Afib: Comment: s/p successful ablation Code(s): I48.91 - Unspecified atrial fibrillation Category: Medical Plan: Patient had successful ablation without recurrence. Not currently on medical management. (5) Impaired glucose tolerance: Code(s): R73.02 - Impaired glucose tolerance (oral) Category: Medical Plan: Decrease the amount of carbohydrates such as pasta, bread, rice, and potatoes and limit the amount of sweets. Although fruits are generally healthy they should be eaten in moderation as they are still high in sugar. (6) EDD (obstructive sleep apnea): Comment: with CPAP Code(s): G47.33 - Obstructive sleep apnea (adult) (pediatric) Category: Medical Plan: Uses CPAP faithfully at least 4 hours a night and benefits from this therapy. (7) Weak urinary stream: Code(s): R39.12 - Poor urinary stream Category: Medical Plan: Patient reports weak urinary stream occasionally in the mornings. Declines medication at this time we will continue to monitor PSA. Plan This note was constructed using voice recognition software. While every effort has been made to ensure accuracy and blade bender furnace tender, still areas may have been included sometimes these areas may affect the content or meeting of the given symptoms. Total time spent caring for the patient today was 30 minutes. This includes time spent before the visit reviewing the chart, time spent during the visit, and time spent after the visit and documentation.
== END 2024-01-04 09:42 | disposition home or self-care (01) ==
PROVIDERS: PCP Internal Medicine
DX: E78.00 Pure hypercholesterolemia, unspecified (principal); F32.A Depression, unspecified; I10 Essential (primary) hypertension; I48.91 Unspecified atrial fibrillation; R73.02 Impaired glucose tolerance (oral); G47.33 Obstructive sleep apnea (adult) (pediatric); R39.12 Poor urinary stream

== ENCOUNTER → 2024-01-04 08:48 | Outpatient (BNVA) | payer MEDICARE, OTHER, SELFPAY | PROVIDERS: PCP Internal Medicine | DX: E78.00 Pure hypercholesterolemia, unspecified (principal); F32.A Depression, unspecified; I10 Essential (primary) hypertension; I48.91 Unspecified atrial fibrillation; R73.02 Impaired glucose tolerance (oral); G47.33 Obstructive sleep apnea (adult) (pediatric); R39.12 Poor urinary stream | CPT/HCPCS: 96127; 99202 ==

== ENCOUNTER → 2024-02-15 14:55 | Outpatient (BNVA) | payer MEDICARE, OTHER, SELFPAY | PROVIDERS: PCP Internal Medicine ==

== ENCOUNTER 2024-02-28 08:53 | Outpatient (AMB) | payer MEDICARE, OTHER, SELFPAY ==
--- NOTE | 2024-02-28 08:55 | A.OFFPC_ITS ---
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: No Accompanied by: Self / Same As Patient Allergies No Known Allergies [No Known Allergies*] Allergy (Verified 02/28/24 08:59) Medication List - Last Reconciled 02/28/24 by Adia Christensen PA-C amlodipine 5 mg PO DAILY atorvastatin 20 mg PO DAILY citalopram 10 mg PO DAILY hydrochlorothiazide 12.5 mg PO DAILY ibuprofen 600 mg PO Q6H PRN lisinopril 20 mg PO BID Tobacco use date assessed: 02/28/24 Fall risk assessment: No Falls in past year Last assessed Fall Risk: 02/28/24 Dental Screening Dental Screen Date: 02/28/24 Did you have a dental visit in the last 12 months?: Yes Did you have a dental problem in the last 6 months where you did not have access to dental care?: No Was dental information given to patient?: Patient has dentist HPI f/u bp HPI Details 68-year-old male with past medical histo ry of hypertension, hypercholesterolemia, anxiety, history of AFib status post ablation and diabetes mellitus last seen 12/2023 coming in for follow up on blood pressure.? In review of the notes, patient was seen by [facility] 02/15/2024 blood pressure was elevated 148/78 and is here for follow up. Patient tells us today he has not been exercising as much as he usually does and with his recent hernia surgery he has not gotten back into his normal activity level. [facility] Medical History Right inguinal hernia EDD (obstructive sleep apnea) Afib Depression High blood pressure High cholesterol Surgical History S/P hernia surgery History of cardiac radiofrequency ablation (RFA) (~2019) Hx of bilateral cataract extraction Hx of colonoscopy Social History Household Members: Spouse Housing: House Are you a primary inspector health care facilities to a significant other at home: No Do you presently have visiting nurse or other home services: No 75 years or older and lives alone: No Alcohol intake: current Alcohol intake frequency: a few times a month Alcohol type: other Patient Tobacco Use Status: Never used Tobacco e-Cigarette/Vaping Use: Never Used Second Hand Smoke Exposure: No service: No Current occupational status: 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 1. Little interest or pleasure in doing things: not at all 2. Feeling down, depressed, or hopeless: not at all 3. Trouble falling or staying asleep, or sleeping too much: not at all 4. Feeling tired or having little energy: not at all 5. Poor appetite or overeating: not at all 6. Feeling bad about yourself - or that you are a failure or have let yourself or your family down: not at all 7. Trouble concentrating on things, such as reading the newspaper or watching television: not at all 8. Moving or speaking so slowly that other people could have noticed. Or the opposite - being so fidgety or restless that you have been moving around a lot more than usual: not at all 9. Thoughts that you would be better off or of hurting yourself in some way: not at all Total score: 0 Depression Screening Interpretation: Negative Depression Screening Done: Yes Source: Developed by Drs. Wade Negrete, Salina Ortega, Nicho Bobby and colleagues, with an educational antonio from [employer]. Thrive Questionnaire Date Thrive assessed: 02/28/24 I am a: Patient What is your living situation today?: I have a steady place to live Within the past 12 months, did the food you bought not last and you didn't have the money to get more?: Never true Within the past 12 months, did you worry whether your food would run out before you got money to buy more?: Never true Do you have trouble paying for medicines?: No Do you have trouble getting transportation to medical appointments?: No Do you have trouble paying your heating and electricity bill?: No Do you have trouble taking care of your child, family member or friend?: No Do you have trouble with day-to-day activities such as bathing, preparing meals, shopping, managing finances, etc.?: No Are you currently unemployed and looking for a job?: No Are you interested in more education?: No Please select the resources that you would like help with: None Currently or been in a relationship where the following occur: No concerns reported THRIVE Score: 0 AUDIT C Alcohol Use Questionnaire (AUDIT-C) 1. How often do you have a drink containing alcohol?: 2-4 times a month 2. How many drinks containing alcohol do you have on a typical day when you are drinking?: 1 or 2 3. How often do you have six or more drinks on one occasion?: Less than monthly Total Score: 3 MADISYN-7 AMB Questionnaire MADISYN-7 Date MADISYN - 7 assessed: 02/28/24 Feeling nervous, anxious, or on edge: 0 = Not at all Not being able to stop or control worryin = Not at all Worrying too much about different things: 0 = Not at all Trouble relaxin = Not at all Being so restless that it is hard to sit still: 0 = Not at all Becoming easily annoyed or irritable: 0 = Not at all Feeling afraid as if something awful might happen: 0 = Not at all Total MADISYN-7 score (0-4 normal; 5-9 mild; 10-14 moderate; 15-21 severe): 0 Source: Developed by Drs. Wade Negrete, Salina Ortega, Nicho Bobby and colleagues, with an educational antonio from [employer]. Review of Systems Const Denies body aches, Denies chills, Denies fever(s), Denies headache(s) and Denies poor appetite Eyes Reports no additional complaints ENT Denies dysphagia, Denies dizziness, Denies headache(s) and Denies odynophagia Card Denies chest pain, Denies syncope, Denies edema, Denies irregular heart rhythm, Denies lightheadedness and Denies dyspnea Resp Denies cough and Denies dyspnea GI Denies abdominal pain, Denies constipation, Denies dysphagia, Denies diarrhea, Denies nausea, Denies odynophagia and Denies vomiting Reports no additional complaints Musc Reports no additional complaints and Denies abnormal gait Skin/Breast Reports system reviewed and no additional complaints, except as documented Neuro Denies abnormal gait, Denies dizziness, Denies syncope and Denies headache(s) Psych Reports no additional complaints Physical exam (Primary Care) Vital Signs: Last Vital Signs Temp 97.1 F 02/28/24 08:57 Pulse 52 02/28/24 08:57 BP 158/82 H 02/28/24 08:57 Pulse Ox 98 02/28/24 08:57 Oxygen Delivery Method Room Air 02/28/24 08:57 BMI result Body Mass Index 29.2 Tobacco/Smoking Status: Tobacco use Status Tobacco use date assessed 02/28/24 02/28/24 09:02 Patient Tobacco Use Status Never used Tobacco 02/28/24 09:02 e-Cigarette/Vaping Use Never Used 02/28/24 09:02 PHQ-9: PHQ-9 Score PHQ-9: Total score 0 02/28/24 09:02 Depression Screening Interpretation: Negative Thrive Assessment: Date of Thrive Assessment Date Thrive assessed 02/28/24 02/28/24 09:02 Currently or been in a relationship where the following occur: No concerns rep orted Const General: cooperative, healthy appearing, comfortable and no acute distress Orientation/consciousness: patient oriented x3 HENMT Head: Yes normocephalic Ears: hearing grossly normal bilaterally General nose exam: Normal external nose present Eyes General: appearance normal, both eyes and all related structures Conjunctivae: conjunctivae normal Neck Neck: Yes full ROM and Yes no lymphadenopathy Resp Effort & Inspection: normal respiratory effort Auscultation: clear to auscultation bilaterally, no crackles, no rales, no rhonchi and no wheezes Cardio Rate: regular rate Rhythm: regular rhythm Skin General skin exam: no rashes or lesions noted Neuro General: patient oriented x3 Gait exam (Neuro): Normal gait present Extrem General: Yes normal to inspection, Yes full ROM and No edema Psych Affect: normal affect Attitude: cooperative Insight: Good insight present (Psych) Judgement: Good judgement present (Psych) Coding Level of Care Code Est Pt Level 3 (55755) Diagnoses High blood pressure I10 Afib I48.91 Impaired glucose tolerance R73.02 High cholesterol E78.00 Assessment & Plan Assessment & Plan (1) High blood pressure: Code(s): I10 - Essential (primary) hypertension Category: Medical Plan: Continue on current blood pressure medication. Avoid salt intake and encourage healthy diet and regular exercise. Blood pressure elevated on exam today we will plan to increase amlodipine to 10 mg and follow up in 2 months for repeat blood pressure. (2) Afib: Comment: s/p successful ablation Code(s): I48.91 - Unspecified atrial fibrillation Category: Medical Plan: Not currently on anticoagulation. Regular rate and rhythm on exam today. We will continue to monitor. (3) Impaired glucose tolerance: Code(s): R73.02 - Impaired glucose tolerance (oral) Category: Medical Plan: Decrease the amount of carbohydrates such as pasta, bread, rice, and potatoes and limit the amount of sweets. Although fruits are generally healthy they should be eaten in moderation as they are still high in sugar. (4) High cholesterol: Code(s): E78.00 - Pure hypercholesterolemia, unspecified Category: Medical Plan: Avoid foods that are high in cholesterol such as red meat, fried foods, eggs and baked goods. Triglyceride goal of less than 150 and LDL goal of less than 130. Continue on atorvastatin 20 mg Plan This note was constructed using voice recognition software. While every effort has been made to ensure accuracy and wireless retail manager, still areas may have been included sometimes these areas may affect the content or meeting of the given symptoms. Total time spent caring for the patient today was 20 minutes. This includes time spent before the visit reviewing the chart, time spent during the visit, and time spent after the visit and documentation. Medications: New lisinopril 20 mg PO BID 180 tabs 2RF hydrochlorothiazide 12.5 mg PO DAILY 90 tabs 2RF amlodipine 10 mg PO DAILY 90 tabs 1RF citalopram 10 mg PO DAILY 90 tabs 3RF atorvastatin 20 mg PO DAILY 90 tabs 3RF
[2024-02-28 08:57] VITALS: BP 158/82; PULSE 52; TEMP 36.2; O2SAT 98; BMI 29.2
[2024-02-28 09:31] VITALS: BP 180/78
== END 2024-02-28 09:30 | disposition home or self-care (01) ==
DX: I10 Essential (primary) hypertension (principal); I48.91 Unspecified atrial fibrillation; R73.02 Impaired glucose tolerance (oral); E78.00 Pure hypercholesterolemia, unspecified

== ENCOUNTER → 2024-02-28 08:53 | Outpatient (BNVA) | payer MEDICARE, OTHER, SELFPAY | DX: I10 Essential (primary) hypertension (principal); I48.91 Unspecified atrial fibrillation; R73.02 Impaired glucose tolerance (oral); E78.00 Pure hypercholesterolemia, unspecified | CPT/HCPCS: 99212 ==

== ENCOUNTER 2024-04-29 09:24 | Outpatient (AMB) | payer MEDICARE, OTHER, SELFPAY ==
--- NOTE | 2024-04-29 09:38 | A.OFFPC_ITS ---
Vital Signs 3 04/29/24 09:39 Height 6 ft Weight 215 lb BMI 29.2 BP 130/66 Blood Pressure Location Lt brachial Position Sitting Pulse 59 Pulse Source Pulse Oximeter Temp 97.7 F Temp Source Temporal Artery Scan Pulse Oximetry (%) 97 Oxygen Delivery Method Room Air Intake Visit Reasons: annual exam Intake Note: Patient is here today for a physical. 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: Not Required per policy Accompanied by: Self / Same As Patient Allergies No Known Allergies [No Known Allergies*] Allergy (Verified 04/29/24 10:00) Medication List - Last Reconciled 04/29/24 by Adia Christensen PA-C amlodipine 10 mg PO DAILY atorvastatin 20 mg PO DAILY citalopram 10 mg PO DAILY hydrochlorothiazide 12.5 mg PO DAILY lisinopril 20 mg PO BID Tobacco use date assessed: 04/29/24 Fall risk assessment: No Falls in past year Last assessed Fall Risk: 04/29/24 Dental Screening Dental Screen Date: 02/28/24 HPI annual exam 2 HPI0 Details 69-year-old male with past medical histo ry of hypertension, obstructive sleep apnea, hypercholesterolemia, anxiety, history of AFib status post ablation and diabetes mellitus last seen 02/2024 coming in for annual exam.? In review of the notes, patient was seen by sleep medicine 04/16/2024 advised to continue on APAP follow up in 1 year.? Presenting for a wellness examination and follow-up on previous medical conditions. Underwent a colonoscopy in 2022 revealing a tubular adenoma, now on a schedule of routine surveillance. Alkaline phosphatase levels have been persistently elevated with previous assessments including ultrasound and liver elastography returning unremarkable. No current issues with hypertension as medication has maintained stable blood pressure. Colonoscopy:?2022 tubular adenoma 5 year follow up PSA: done 10/2023 [facility] Medical History Right inguinal hernia EDD (obstructive sleep apnea) Afib Depression High blood pressure High cholesterol Surgical History S/P hernia surgery History of cardiac radiofrequency ablation (RFA) (~2019) Hx of bilateral cataract extraction Hx of colonoscopy Social History Household Members: Spouse Housing: House Are you a primary day care attendant to a significant other at home: No Do you presently have visiting nurse or other home services: No 75 years or older and lives alone: No Alcohol intake: current Alcohol intake frequency: a few times a month Alcohol type: other Patient Tobacco Use Status: Never used Tobacco e-Cigarette/Vaping Use: Never Used Second Hand Smoke Exposure: No service: No Current occupational status: 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 1. Little interest or pleasure in doing things: not at all 2. Feeling down, depressed, or hopeless: not at all 3. Trouble falling or staying asleep, or sleeping too much: not at all 4. Feeling tired or having little energy: not at all 5. Poor appetite or overeating: not at all 6. Feeling bad about yourself - or that you are a failure or have let yourself or your family down: not at all 7. Trouble concentrating on things, such as reading the newspaper or watching television: not at all 8. Moving or speaking so slowly that other people could have noticed. Or the opposite - being so fidgety or restless that you have been moving around a lot more than usual: not at all 9. Thoughts that you would be better off or of hurting yourself in some way: not at all Total score: 0 Depression Screening Interpretation: Negative Depression Screening Done: Yes Source: Developed by Drs. Wade Negrete, Salina Ortega, Nicho Bobby and colleagues, with an educational antonio from [employer]. Thrive Questionnaire Date Thrive assessed: 04/29/24 I am a: Patient What is your living situation today?: I have a steady place to live Within the past 12 months, did the food you bought not last and you didn't have the money to get more?: Never true Within the past 12 months, did you worry whether your food would run out before you got money to buy more?: Never true Do you have trouble paying for medicines?: No Do you have trouble getting transportation to medical appointments?: No Do you have trouble paying your heating and electricity bill?: No Do you have trouble taking care of your child, family member or friend?: No Do you have trouble with day-to-day activities such as bathing, preparing meals, shopping, managing finances, etc.?: No Are you currently unemployed and looking for a job?: No Are you interested in more education?: No Please select the resources that you would like help with: None Currently or been in a relationship where the following occur: No concerns reported THRIVE Score: 0 AUDIT C Alcohol Use Questionnaire (AUDIT-C) 1. How often do you have a drink containing alcohol?: 2-4 times a month Total Score: 2 MADISYN-7 AMB Questionnaire MADISYN-7 Date MADISYN - 7 assessed: 04/29/24 Feeling nervous, anxious, or on edge: 0 = Not at all Not being able to stop or control worryin = Not at all Worrying too much about different things: 0 = Not at all Trouble relaxin = Not at all Being so restless that it is hard to sit still: 0 = Not at all Becoming easily annoyed or irritable: 0 = Not at all Feeling afraid as if something awful might happen: 0 = Not at all Total MADISYN-7 score (0-4 normal; 5-9 mild; 10-14 moderate; 15-21 severe): 0 Source: Developed by Drs. Wade Negrete, Salina Ortega, Nicho Bobby and colleagues, with an educational antonio from [employer]. Review of Systems Const Denies body aches, Denies chills, Denies fever(s), Denies headache(s) and Denies poor appetite Eyes Reports no additional complaints ENT Denies dysphagia, Denies dizziness, Denies headache(s) and Denies odynophagia Card Denies chest pain, Denies syncope, Denies edema, Denies irregular heart rhythm, Denies lightheadedness and Denies dyspnea Resp Denies cough and Denies dyspnea GI Denies abdominal pain, Denies constipation, Denies dysphagia, Denies diarrhea, Denies nausea, Denies odynophagia and Denies vomiting Reports no additional complaints Musc Reports no additional complaints and Denies abnormal gait Skin/Breast Reports system reviewed and no additional complaints, except as documented Neuro Denies abnormal gait, Denies dizziness, Denies syncope and Denies headache(s) Psych Reports no additional complaints Physical exam (Primary Care) Vital Signs: Last Vital Signs Temp 97.7 F 04/29/24 09:39 Pulse 59 04/29/24 09:39 BP 130/66 04/29/24 09:39 Pulse Ox 97 04/29/24 09:39 Oxygen Delivery Method Room Air 04/29/24 09:39 BMI result Body Mass Index 29.2 Tobacco/Smoking Status: Tobacco use Status Tobacco use date assessed 04/29/24 04/29/24 09:50 Patient Tobacco Use Status Never used Tobacco 04/29/24 09:50 e-Cigarette/Vaping Use Never Used 04/29/24 09:50 PHQ-9: PHQ-9 Score PHQ-9: Total score 0 04/29/24 09:50 Depression Screening Interpretation: Negative Thrive Assessment: Date of Thrive Assessment Date Thrive assessed 04/29/24 04/29/24 09:50 Currently or been in a relationship where the following occur: No concerns reported Const General: cooperative, healthy appearing, comfortable and no acute distress Orientation/consciousness: patient oriented x3 HENMT Head: Yes normocephalic Ears: hearing grossly normal bilaterally, external ears normal, TM's normal bilaterally and EAC's normal General nose exam: Normal external nose present Face and sinus: Yes normal facial exam and Yes sinuses nontender Mouth: Normal oral and palatal mucosa present and tongue normal Throat: Yes posterior oropharynx normal Eyes General: appearance normal, both eyes and all related structures Conjunctivae: conjunctivae normal Pupils: Equal, round and reactive pupils present EOM: EOMs intact bilaterally and No Nystagmus present Neck Neck: Yes normal visual inspection, Yes full ROM and Yes no lymphadenopathy Chest Chest palpation & inspection: normal inspection of the chest Resp Effort & Inspection: normal respiratory effort Auscultation: clear to auscultation bilaterally, no crackles, no rales, no rhonchi, no wheezes and breath sounds present Cardio Rate: regular rate Rhythm: regular rhythm Peripheral pulses: radial pulses present and dorsalis pedis present GI Inspection: Yes normal to inspection and No Abdominal wall edema Palpation (GI): Soft to palpation, not firm and nontender Auscultation: normal bowel sounds Rectal Exam - Male: Yes deferred General: Yes no CVA tenderness Back/Spine/Pelvis Back: no CVA tenderness Skin General skin exam: no rashes or lesions noted Neuro General: patient oriented x3 Cranial nerves: Yes Equal, round and reactive pupils present, Yes Midline tongue present, Yes Ability to bilaterally elevate shoulders present and No Nystagmus present Gait exam (Neuro): Normal gait present Extrem General: Yes normal to inspection, Yes full ROM, No no pedal edema and No edema Hand/finger images: 2 1. Soft tissue mass that is not tender to palpation non fluctuant without overlying skin changes Psych Speech and movement: Normal speech and movement present Affect: normal affect Insight: Good insight present (Psych) Judgement: Good judgement present (Psych) Coding Level of Care Code Est Pt Prev Care >65y(97819) Diagnoses EDD (obstructive sleep apnea) G47.33 Impaired glucose tolerance R73.02 High cholesterol E78.00 Depression F32.A Afib I48.91 High blood pressure I10 Annual physical exam Z00.00 Soft tissue mass M79.89 Weak urinary stream R39.12 Assessment & Plan Assessment & Plan (1) EDD (obstructive sleep apnea): Comment: with CPAP Code(s): G47.33 - Obstructive sleep apnea (adult) (pediatric) Category: Medical Plan: Uses CPAP faithfully at least 4 hours a night and benefits from this therapy. Continue to follow with sleep Medicine. (2) Impaired glucose tolerance: Code(s): R73.02 - Impaired glucose tolerance (oral) Category: Medical Plan: Decrease the amount of carbohydrates such as pasta, bread, rice, and potatoes and limit the amount of sweets. Although fruits are generally healthy they should be eaten in moderation as they are still high in sugar. Last A1c 5.9% (3) High cholesterol: Code(s): E78.00 - Pure hypercholesterolemia, unspecified Category: Medical Plan: Avoid foods that are high in cholesterol such as red meat, fried foods, eggs and baked goods. Triglyceride goal of less than 150 and LDL goal of less than 130. Continue on atorvastatin 20 (4) Depression: Code(s): F32.A - Depression, unspecified Category: Medical Plan: Patient currently on citalopram 10 mg and and feels this is beneficial. Declines counseling referral at this time. (5) Afib: Comment: s/p successful ablation Code(s): I48.91 - Unspecified atrial fibrillation Category: Medical Plan: Not currently on medical management. Continue to monitor (6) High blood pressure: Code(s): I10 - Essential (primary) hypertension Category: Medical Plan: Continue on current blood pressure medication. Avoid salt intake and encourage healthy diet and regular exercise. (7) Annual physical exam: Code(s): Z00.00 - Encounter for general adult medical examination without abnormal findings Category: Medical Plan: Patient is up-to-date on all recommended routine screenings and vaccinations for his age. Lifestyle modifications focusing on nutritional balance and activity aids in weight control. Follow-up appointments in six months for further health checks and laboratory evaluations. (8) Soft tissue mass: Code(s): M79.89 - Other specified soft tissue disorders Category: Medical Plan: Patient has soft tissue mass over DIP joint of right thumb referral placed to general surgery for excision as it is bothersome. Lump is not painful and has not been growing. (9) Weak urinary stream: Code(s): R39.12 - Poor urinary stream Category: Medical Plan: Patient does endorse continued weak urinary stream. Declines medical management at this time and declines referral to Urology. Continue to monitor and reach out if symptoms worsen or persist. Plan This note was constructed using voice recognition software. While every effort has been made to ensure accuracy and maintenance service supervisor, still areas may have been included sometimes these areas may affect the content or meeting of the given symptoms. Total time spent caring for the patient today was 30 minutes. This includes time spent before the visit reviewing the chart, time spent during the visit, and time spent after the visit and documentation. Patient was informed and verbally consented to the use of an ambient scribe for clinic note documentation during this visit. Orders: Orders 2 Comprehensive Met. Panel Today Z00.00 - Encounter for general adult medical examination without abnormal findings Referrals 2 General Surgery Referral M79.89 - Other specified soft tissue disorders
[2024-04-29 09:39] VITALS: BP 130/66; PULSE 59; TEMP 36.5; O2SAT 97; BMI 29.2
--- OUTSIDE RECORDS SUMMARY | 2024-04-29 10:16 | XMS_ITS | Encounter Summary ---
Author Organization [facility] [employer] [facility] Address [address] [place] [address] Care Team Providers Care Optical Mechanic Apprentice Name Role Phone Chito Lao MD Primary Care Provider Unava ilable Encounter Details Date Type Department Care Team Description 06/28/2016 Joint Machine Operator Report Medical Records [address] [place] [address] Osman Vidal MD [address] [place] [address] Social History Tobacco Use Types Packs/Day Years Used Date Smoking Tobacco: Never Alcohol Use Standard Drinks/Week Comments Not Asked 0 (1 standard drink = 0.6 oz pur e alcohol) Sex Assigned at Date Recorded Not on file documented as of this encounter Plan of Treatment Not on file documented as of this encounter Visit Diagnoses Not on filedocumented in this encounter Care Teams Optical Mechanic Apprentice Relationship Specialty Start Date End Date Chito Lao MD PCP - General Internal Medicine 02/17/16 documented as of this encounter
--- OUTSIDE RECORDS SUMMARY | 2024-04-29 10:16 | XMS_ITS | Clinical Summary ---
Author Organization [facility] [place] [address] Care Team Providers Care Case Management Rn Name Role Phone Chito Lao MD Primary Care Provider [phone] Social History Tobacco Use Types Packs/Day Years Used Date Smoking Tobacco: Never Assessed Sex and Gender Information Value Date Recorded Sex Assigned at Not on file Legal Sex Male 7:40 PM EST Gender Identity Not on file Sexual Orientation Not on file Plan of Treatment Health Maintenance Due Date Last Done Comments DTaP,Tdap,and Td Vaccines (1 - Tdap) 1973 Pneumococcal Vaccine: 50+ Ye ars (1 of 1 - PCV) 2004 Zoster Vaccines (1 of 2) 2004 COVID-19 Vaccine ( - 2023-2 5 season) 2023 Influenza Vaccine (#1) 2023 RSV Immunization Patients 60 + Years Old (1 - 1-dose 75+ series) 2029 HIB Vaccines Aged Out No longer eligi ble based on patient's age to complete this topic HPV Vaccines Aged Out No longer eligi ble based on patient's age to complete this topic Hepatitis A Vaccines Aged Out No long er eligible based on patient's age to complete this topic Hepatitis B Vaccines Aged Out No long er eligible based on patient's age to complete this topic IPV Vaccines Aged Out No longer eligi ble based on patient's age to complete this topic MMR Vaccines Aged Out No longer eligi ble based on patient's age to complete this topic Meningococcal ACWY Vaccine Aged Out N o longer eligible based on patient's age to complete this topic Meningococcal B Vacine Aged Out No lo nger eligible based on patient's age to complete this topic RSV Immunization Patients Un palomo 20 months Aged Out No longer eligible b ased on patient's age to complete this topic Varicella Vaccines Aged Out No longer eligible based on patient's age to complete this topic Care Teams Case Management Rn Relationship Specialty Start Date End Date Chito Lao MD [address] [place] [address] Dr Mathew [place] PCP - General Internal Medicine 02/17/16
--- OUTSIDE RECORDS SUMMARY | 2024-04-29 10:16 | XMS_ITS | Encounter Summary ---
Author Organization [facility]ified [facility] Address [address] [place] [address] Care Team Providers Care Assistant Professor Of Archaeology Name Role Phone Chito Lao MD Primary Care Provider Unava ilable Reason for Visit * Reason Onset Date Comments hospital follow up 02/17/2016 [facility] 02/13/16, [facility] 02/16[place]16 Encounter Details Date Type Department Care Team Description 02/17/2016 Telephone Cardiology - [place] [address] [place] [id number] Mell Hull MD [address] [place] [address] [phone] hospital follow up ([facility] 02/13/16, [facility] 02/16/16) Social History Tobacco Use Types Packs/Day Years Used Date Smoking Tobacco: Never Assessed Sex Assigned at Date Recorded Not on file documented as of this encounter Miscellaneous Notes * Telephone Encounter - Anitra Lyman - 02/17/2016 9:45 AM EST New external patient's Stephany calling to book [facility] hospital f/u 02/13/16, s/p [facility] cardioversion 02/16/16. documented in this encounter Plan of Treatment Not on file documented as of this encounter Visit Diagnoses Not on filedocumented in this encounter Care Teams Assistant Professor Of Archaeology Relationship Specialty Start Date End Date Chito Lao MD PCP - General Internal Medicine 02/17/16 documented as of this encounter
--- OUTSIDE RECORDS SUMMARY | 2024-04-29 10:16 | XMS_ITS | Patient Health Record ---
Author Organization [facility] Address [address] [place] [address] Care Team Providers Care Music Industry Internship Name Role Phone Chito Lao MD Primary Care Provider Humberto alvarez DasWade Unavailable [phone] Allergies No Known Allergies Reason For Referral No Information Medications Medication SIG (Take, Route, Frequency, Duration) Notes Start Date End Date Status amLODIPine Besylate 5 MG 1 tablet Orally Once a day Active hydroCHLOROthiazide 12.5 MG 1 capsule Or ally Once a day Active Citalopram Hydrobromide 10 MG 1 tablet O rally Once a day Active Lisinopril 20 MG 1 Orally QD A ctive Atorvastatin Calcium 10 MG 1 tablet Oral ly Once a day Active Immunizations Vaccine Route Administration Date Status Comme nts Influenza Unknown 10/13/2020 Administered Problems Problem Type SNOMED Code ICD Code Onset Dates Problem Status W/U Status Risk Notes Problem 971392346 Encounter for screening for malignant neoplasm of colon (Z12.11) Active confirmed Problem 458639107 History of adenomatous polyp of colon (Z86.010) Active confirmed Problem Diverticular disease of colon (604651017) Diverticulosis of large intestine without perforation or abscess without bleeding (K57.30) Active confirmed Problem Screening for malignant neoplasm of rectum (544002873) Encounter for screening for malignant neoplasm of rectum (Z12.12) Active confirmed Problem 196231684 Preprocedural examination (Z01.818) Active confirmed Problem 965380464 Long-term use of aspirin therapy (Z79.82) Active confirmed Problem Alkaline phosphatase raised (451869065) Elevated alkaline phosphatase level (R74.8) Active confirmed Plan Of Treatment Pending Test Test Name Order Date LIVER PROFILE 01/17/2022 GGT 01/17/2022 IRON + IBC (FE) 01/17/2022 CBC w DIFF 01/17/2022 PROTHROMBIN TIME (PT, INR) 01/17/2022 HEPATITIS B PROFILE 01/17/2022 FLUOR. ANTINUCLEAR AB SCREEN (FRANCES) 07/2021 US ABDOMEN COMP WITH ELASTOGRAPHY 2021 Ferritin 01/17/2022 Alpha 1 Anti-trypsin 01/17/2022 Alkaline Phosphatase Isoenzyme Liver Fibrosis Pnl 01/17/2022 Mitochondrial Antibody 01/17/2022 Smooth Muscle Antibody 01/17/2022 Future Test Test Name Order Date COLONOSCOPY 12/28/2010 COLONOSCOPY 05/03/2016 COLONOSCOPY 01/17/2022 Insurance Providers Payer Name Payer Address Payer Phone Subscriber Number Group Number Insured Name Patient Relationship to Insured Coverage Start Date Coverage End Date MEDICARE OF [place] [address] [place] [address] [id number] JOHN HERZOG Self - patient is the insured [facility] [address] [place] [address] [phone] [id number] JOHN HERZOG Self - patient is the insured Medical (General) History Medical History History ICD Code Colonoscopy 02-08-2011 and 2 006--small tubular adenomas, lipoma, diverticulosis Hypertension Hyperlipidemia Depression Denies [place],DM,CVA,Lung disease,renal dise ase Afib--s/p successful ablation Hyperlipidemia Sleep apnea-uses CPAP Negative colonoscopy in 08/2016 Surgical History Surgery Date(Month/Year)
--- OUTSIDE RECORDS SUMMARY | 2024-04-29 10:16 | XMS_ITS | Encounter Summary ---
Author Organization [facility] Address [address] [place] [address] Care Team Providers Care Mellowing Machine Operator Name Role Phone Chito Lao MD Primary Care Provider Chito Louie MD Primary Care Provider Torsten cowan Encounter Details Date Type Department Care Team Description 02/13/2016 [facility] Medical Records [address] [place] [id number] [place] [address] Social History Tobacco Use Types Packs/Day Years Used Date Smoking Tobacco: Never Alcohol Use Standard Drinks/Week Comments Not Asked 0 (1 standard drink = 0.6 oz pur e alcohol) Sex Assigned at Date Recorded Not on file documented as of this encounter Plan of Treatment Not on file documented as of this encounter Visit Diagnoses Not on filedocumented in this encounter Care Teams Mellowing Machine Operator Relationship Specialty Start Date End Date Chito Lao MD PCP - General Internal Medicine 02/17/16 Chito Lao MD PCP - General 02/13/16 02/16/16 documented as of this encounter
--- OUTSIDE RECORDS SUMMARY | 2024-04-29 10:16 | XMS_ITS | Encounter Summary ---
Author Organization [facility] Address [address] [place] [address] Care Team Providers Care Dining Manager Name Role Phone Chito Lao MD Primary Care Provider Unava ilable Reason for Visit * Reason Onset Date Comments REFERRAL 02/17/2016 Encounter Details Date Type Department Care Team Description 02/17/2016 Telephone Cardiology - [place] [address] [place], [place] [phone] Mell Hull MD [address] [place] [address] REFERRAL Social History Tobacco Use Types Packs/Day Years Used Date Smoking Tobacco: Never Assessed Sex Assigned at Date Recorded Not on file documented as of this encounter Miscellaneous Notes * Telephone Encounter - Anitra Lyman - 02/17/2016 11:43 AM EST Received via fax referral from external pcp office, referral# [id number], 10 visits, service date 02/17/16-02/16/17. Faxed over to referrals dept. documented in this encounter Plan of Treatment Not on file documented as of this encounter Visit Diagnoses Not on filedocumented in this encounter Care Teams Dining Manager Relationship Specialty Start Date End Date Chito Lao MD PCP - General Internal Medicine 02/17/16 documented as of this encounter
--- OUTSIDE RECORDS SUMMARY | 2024-04-29 10:16 | XMS_ITS | Encounter Summary ---
Author Organization [facility] [employer] [facility] Address [address] [place] [address] Care Team Providers Care Government Relations Manager Name Role Phone Chito Lao MD Primary Care Provider Chito Louie MD Primary Care Provider Torsten cowan Encounter Details Date Type Department Care Team Description 02/13/2016 [facility] Medical Records [address] [place] [address] Mell Hull MD [address] [place] [address] Social History Tobacco Use Types Packs/Day Years Used Date Smoking Tobacco: Never Alcohol Use Standard Drinks/Week Comments Not Asked 0 (1 standard drink = 0.6 oz pur e alcohol) Sex Assigned at Date Recorded Not on file documented as of this encounter Plan of Treatment Not on file documented as of this encounter Visit Diagnoses Not on filedocumented in this encounter Care Teams Government Relations Manager Relationship Specialty Start Date End Date Chito Lao MD PCP - General Internal Medicine 02/17/16 Chito Lao MD PCP - General 02/13/16 02/16/16 documented as of this encounter
== END 2024-04-29 10:23 | disposition home or self-care (01) ==
LOC: HO.HMCH 09:25
DX: Z00.00 Encounter for general adult medical examination without abnormal findings (principal); E78.00 Pure hypercholesterolemia, unspecified; I48.91 Unspecified atrial fibrillation; G47.33 Obstructive sleep apnea (adult) (pediatric); R73.02 Impaired glucose tolerance (oral); F32.A Depression, unspecified; I10 Essential (primary) hypertension; M79.89 Other specified soft tissue disorders; R39.12 Poor urinary stream

== ENCOUNTER → 2024-04-29 09:24 | Outpatient (BNVA) | payer MEDICARE, OTHER, SELFPAY | DX: Z00.00 Encounter for general adult medical examination without abnormal findings (principal); G47.33 Obstructive sleep apnea (adult) (pediatric); R73.02 Impaired glucose tolerance (oral); E78.00 Pure hypercholesterolemia, unspecified; F32.A Depression, unspecified; I48.91 Unspecified atrial fibrillation; I10 Essential (primary) hypertension; M79.89 Other specified soft tissue disorders; R39.12 Poor urinary stream | CPT/HCPCS: 99397 ==

== ENCOUNTER 2024-09-17 15:18 | Outpatient (AMB) | payer MEDICARE, OTHER, SELFPAY ==
--- NOTE | 2024-09-17 15:26 | MHC.PC.OV ---
Vital Signs 09/17/24 15:28 Height 6 ft Weight 207 lb 2 oz BMI 28.1 BP 130/72 Blood Pressure Location Lt brachial Position Sitting Pulse 86 Pulse Source Pulse Oximeter Pulse Oximetry (%) 98 Oxygen Delivery Method Room Air Intake Visit Reasons: [facility] 08/31 Industrial Economics Professor Required: No Accompanied by: Self / Same As Patient Allergies No Known Allergies (No Known Allergies*) Allergy (Verified 09/17/24 15:35) Medication List - Last Reconciled 09/17/24 by Adia Christensen PA-C amlodipine 10 mg PO DAILY apixaban (Eliquis) 5 mg PO BID atorvastatin 20 mg PO DAILY citalopram 10 mg PO DAILY hydrochlorothiazide 12.5 mg PO DAILY lisinopril 20 mg PO BID Tobacco use date assessed: 09/17/24 Fall risk assessment: No Falls in past year Last assessed Fall Risk: 09/17/24 Dental Screening Dental Screen Date: 09/17/24 Did you have a dental visit in the last 12 months?: No Did you have a dental problem in the last 6 months where you did not have access to dental care?: No Was dental information given to patient?: No HPI [facility] 08/31 HPI Details 69-year-old male with past medical history of hypertension, obstructive sleep apnea, history of AFib status post ablation, diabetes mellitus, hypercholesterolemia, anxiety last seen 04/2024 coming in for hospital discharge follow up. In review of the notes, patient was seen in [facility] ED 08/2024 after concern for possible atrial fibrillation was determined he was in fact in atrial fibrillation and was given diltiazem and Eliquis on discharge. He was unable to pick up and delivery driver the diltiazem from the pharmacy during the interaction with amlodipine. Presenting with atrial fibrillation. He reports a history of atrial fibrillation, initially presenting with palpitations and irregular heartbeats. Denies chest pain, lightheadedness, dizziness, or shortness of breath during episodes. Underwent two prior ablations, last in 2016, and is under [facility] Cardiology care. Prescribed diltiazem, but was unable to pick up and delivery driver from the pharmacy due to interaction with amlodipine. Currently taking Eliquis and concerned about cardioversion before November due to travel plans. He has a appointment in November with [facility] Cardiology with plans to continue with his previous manager internal Dr. Hull. [facility] Medical History Right inguinal hernia EDD (obstructive sleep apnea) Afib Depression High blood pressure High cholesterol Surgical History S/P hernia surgery History of cardiac radiofrequency ablation (RFA) (~2020) Hx of bilateral cataract extraction Hx of colonoscopy Social History Household Members: Spouse Housing: House Are you a primary career technical supervisor to a significant other at home: No Do you presently have visiting nurse or other home services: No 75 years or older and lives alone: No Alcohol intake: current Alcohol intake frequency: a few times a month Alcohol type: other Patient Tobacco Use Status: Never used Tobacco e-Cigarette/Vaping Use: Never Used Second Hand Smoke Exposure: No service: No Current occupational status: 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 Cognitive needs: No Hearing needs: No Vision needs: Yes Questionnaire Thrive Questionnaire Date Thrive assessed: 09/17/24 I am a: Patient What is your living situation today?: I have a steady place to live Within the past 12 months, did the food you bought not last and you didn't have the money to get more?: Never true Within the past 12 months, did you worry whether your food would run out before you got money to buy more?: Never true Do you have trouble paying for medicines?: No Do you have trouble getting transportation to medical appointments?: No Do you have trouble paying your heating and electricity bill?: No Do you have trouble taking care of your child, family member or friend?: No Do you have trouble with day-to-day activities such as bathing, preparing meals, shopping, managing finances, etc.?: No Are you currently unemployed and looking for a job?: No Are you interested in more education?: No Please select the resources that you would like help with: None Currently or been in a relationship where the following occur: No concerns reported THRIVE Score: 0 MADISYN-7 AMB Questionnaire MADISYN-7 Date MADISYN - 7 assessed: 09/17/24 Source: Developed by Drs. Wade Negrete, Salina Ortega, Nicho Bobby and colleagues, with an educational antonio from [employer]. Review of Systems Const Denies body aches, Denies chills, Denies fever(s), Denies headache(s) and Denies poor appetite Eyes Reports no additional complaints ENT Denies dysphagia, Denies dizziness, Denies headache(s) and Denies odynophagia Card Denies chest pain, Denies syncope, Denies edema, Denies irregular heart rhythm, Denies lightheadedness and Denies dyspnea Resp Denies cough and Denies dyspnea GI Denies abdominal pain, Denies constipation, Denies dysphagia, Denies diarrhea, Denies nausea, Denies odynophagia and Denies vomiting Reports no additional complaints Musc Reports no additional complaints and Denies abnormal gait Skin/Breast Reports system reviewed and no additional complaints, except as documented Neuro Denies abnormal gait, Denies dizziness, Denies syncope and Denies headache(s) Psych Reports no additional complaints Physical exam (Primary Care) Vital Signs: Last Vital Signs Pulse 86 09/17/24 15:28 BP 130/72 09/17/24 15:28 Pulse Ox 98 09/17/24 15:28 Oxygen Delivery Method Room Air 09/17/24 15:28 BMI result Body Mass Index 28.1 Tobacco/Smoking Status: Tobacco use Status Tobacco use date assessed 09/17/24 09/17/24 15:33 Patient Tobacco Use Status Never used Tobacco 09/17/24 15:33 e-Cigarette/Vaping Use Never Used 09/17/24 15:33 Thrive Assessment: Date of Thrive Assessment Date Thrive assessed 09/17/24 09/17/24 15:33 Currently or been in a relationship where the following occur: No concerns reported Const General: cooperative, healthy appearing, comfortable and no acute distress Orientation/consciousness: patient oriented x3 [facility] Head: Yes normocephalic Ears: hearing grossly normal bilaterally General nose exam: Normal external nose present Eyes General: appearance normal, both eyes and all related structures Conjunctivae: conjunctivae normal Neck Neck: Yes full ROM and Yes no lymphadenopathy Resp Effort & Inspection: normal respiratory effort Auscultation: clear to auscultation bilaterally, no crackles, no rales, no rhonchi and no wheezes Cardio Rate: regular rate Rhythm: abnormal rhythm Skin General skin exam: no rashes or lesions noted Neuro General: patient oriented x3 Gait exam (Neuro): Normal gait present Extrem General: Yes normal to inspection, Yes full ROM and No edema Psych Affect: normal affect Attitude: cooperative Insight: Good insight present (Psych) Judgement: Good judgement present (Psych) Coding Level of Care Code Est Pt Level 4 (70275) Diagnoses Afib I48.91 High blood pressure I10 Assessment & Plan Assessment & Plan (1) Afib: Comment: [facility] Cardiology Code(s): I48.91 - Unspecified atrial fibrillation Category: Medical Plan: Patient was placed on diltiazem while in the ED and was not given a dose of the medication. I discussed this case with Dr. Knox and given the interaction with amlodipine and diltiazem plan to reach out to [facility] for further advice. I did reach out to the office and was informed they would call back tomorrow 09/18/2024. At this time he is asymptomatic without tachycardia. Plan to continue on Eliquis and further guidance regarding diltiazem we will be provided tomorrow. Patient agrees with the plan. I did discuss red flag symptoms and when to present for re-evaluation. (2) High blood pressure: Code(s): I10 - Essential (primary) hypertension Category: Medical Plan: Continue on current blood pressure medication. Avoid salt intake and encourage healthy diet and regular exercise. Plan The patient is advised to refrain from taking diltiazem due to potential interactions with amlodipine, as both are calcium channel blockers. The pharmacist's concern about the interaction was acknowledged, and the patient was instructed not to take diltiazem until further consultation with a manager internal. The patient is currently on Eliquis to manage the risk of thromboembolism associated with atrial fibrillation. The possibility of cardioversion before the scheduled November appointment was discussed, considering the patient's upcoming travel plans. It was noted that cardioversion could be considered if an echocardiogram shows no thrombus formation, but this decision would be under the manager internal's discretion. Consideration for beta-blaise was made however patient is heart rate maintenance support this. This note was constructed using voice recognition software. While every effort has been made to ensure accuracy and fisher oyster, still areas may have been included sometimes these areas may affect the content or meeting of the given symptoms. Total time spent caring for the patient today was 20 minutes. This includes time spent before the visit reviewing the chart, time spent during the visit, and time spent after the visit and documentation. Patient was informed and verbally consented to the use of an ambient scribe for clinic note documentation during this visit. Medications: New apixaban (Eliquis) 5 mg PO BID 60 tabs 0RF
[2024-09-17 15:28] VITALS: BP 130/72; PULSE 86; O2SAT 98; BMI 28.1
--- OUTSIDE RECORDS SUMMARY | 2024-09-17 15:48 | XMS_ITS | Clinical Summary ---
Author Organization [facility] Address [address] [place] [address] Phone Care Team Providers Care Director Channel Name Role Phone Adia Christensen Primary Care Provider [phone] Medications dilTIAZem XR (DILACOR XR) 120 mg 24 hr capsule Take 1 capsule (120 mg total) by mouth 1 (one) time each day. 30 capsule 08/31/2024 Active apixaban (ELIQUIS) starter pack Take 2 tablets (10 mg total) by mouth 2 (two) times a day for 7 days. Then take 1 tablet (5 mg total) by mouth 2 (two) times a day. 74 tablet 08/31/2024 Active Encounters Date Type Department Care Team Description 09/04/2024 Telephone [facility] [address] [facility] [address] [place] [phone] Adia Christensen PA Referral (Received routine paper referral - August) 09/04/2024 Telephone [facility] [address] [facility] [address] [place] [phone] Adia Christensen PA Referral 09/04/[address] [place] [phone] Adia Christensen PA 08/31/2024 12:24 PM EDT - 08/31/2024 12:43 PM EDT Emergency Emergency [address] [place] [phone] Clark Harman MD Paroxysmal atrial fibrillation (CMS/HCC V24, CMS/HCC V28) (Primary Dx) Discharge Disposition: Home or Self Care from Last 3 Months Social History Tobacco Use Types Packs/Day Years Used Date Smoking Tobacco: Never Assessed Sex and Gender Information Value Date Recorded Sex Assigned at Not on file Legal Sex Male 7:40 PM EST Gender Identity Not on file Sexual Orientation Not on file Plan of Treatment Upcoming Encounters Date Type Department Care Team (Late st Contact Info) Description 11/17/2024 10:25 AM EDT Office Visit [facility] [address] [facility] [address] [place] [phone] Osman Vidal MD [address] [place] [address] Health Maintenance Due Date Last Done Comments DTaP,Tdap,and Td Vaccines (1 - Tdap) 1973 Pneumococcal Vaccine: 50+ Ye ars (1 of 1 - PCV) 2004 Zoster Vaccines (1 of 2) 2004 COVID-19 Vaccine (1 - 2023-2 5 season) 2023 Depression Screening 02/13/2024 Abdominal Aortic Aneurysm (A AA) Screen 08/31/2024 Cholesterol Screening (Lipid Panel) 08/31/2024 Colorectal Cancer Screening: Colonoscopy 08/31/2024 Falls Risk Assessment 08/31/2024 Hepatitis C Screening 08/31/2024 Hypertension/CHF/CAD Annual BMP Blood Test 08/31/2024 Medicare Annual Wellness Visit 08/31/2024 Social Influencers of Health Screening 08/31/2024 Influenza Vaccine (#1) 2024 10/13/2020 RSV Immunization Adult Patie nts (1 - 1-dose 75+ series) 2029 HIB [...] age to complete this topic Meningococcal B Vaccine Aged Out No l onger eligible based on patient's age to complete this topic RSV Immunization Patients Un palomo 20 months Aged Out No longer eligible b ased on patient's age to complete this topic Varicella Vaccines Aged Out No longer eligible based on patient's age to complete this topic Procedures Procedure Name Priority Date/Time Associated Diagnosis Comments ECG ANNOTATED 09/01/2024 ECG 12-LEAD STAT 08/31/2024 12:14 PM EDT from Last 3 Months Results * ECG-Annotated (09/01/2024) us Provider Onbase ECG ORDERABLES Final Result * ECG 12 lead (08/31/2024 12:14 PM EDT) Ventricular Rate ECG 87 BPM GEMUSE QRS Duration 88 ms GEMUSE Q-T Interval 334 ms GEMUSE QTc 401 ms GEMUSE R [place] 50 degrees GEMUSE T [place] 37 degrees GEMUSE ECG Interpretation Atrial fibrillation Abnormal ECG When compared with ECG of 12-SEP-2017 07:19, Atrial fibrillation has replaced Sinus rhythm Confirmed by Mike PEREA JAMES ([id number]) on 09/01/2024 2:34:40 PM GEMUSE 08/31/2024 12:1 4 PM EDT 09/01/2024 2:34 PM EDT Clark Harman MD ECG ORDERABLES Final Result GEMUSE from Last 3 Months Insurance MEDICARE [facility] Care Teams Director Channel Relationship Specialty Start Date End Date Adia Christensen PA [address] [facility], [address] [place] [address] PCP - General 09/01/24
--- OUTSIDE RECORDS SUMMARY | 2024-09-17 15:48 | XMS_ITS | Patient Health Record ---
Author Organization [facility] Address [address] [place] [address] Care Team Providers Care Hat Lacer Name Role Phone Shiol (RETIRED) Chito RUIZ Primary Care Provide r Unavailable Wade Das Unavailable [phone] Allergies No Known Allergies Reason For Referral [...] Problem Status W/U Status Risk Notes Problem 982792996 Encounter for screening for malignant neoplasm of colon (Z12.11) Active confirmed Problem 278812247 History of adenomatous polyp of colon (Z86.010) Active confirmed Problem Diverticulosis o f large intestine without perforation or abscess without bleeding (K57.30) Active confirmed Problem Screening for malignant neoplasm of rectum (167767686) Encounter for screening for malignant neoplasm of rectum (Z12.12) Active confirmed Problem 046798692 Preprocedural examination (Z01.818) Active confirmed Problem 236711488 Long-term use of aspirin therapy (Z79.82) Active confirmed Problem Alkaline phosphatase raised (692369640) Elevated alkaline phosphatase level (R74.8) Active confirmed Plan Of Treatment Pending Test Test Name Order Date LIVER PROFILE 01/17/2022 GGT 01/17/2022 IRON + IBC (FE) 01/17/2022 CBC w DIFF 01/17/2022 PROTHROMBIN TIME (PT, INR) 01/17/2022 HEPATITIS B PROFILE 01/17/2022 FLUOR. ANTINUCLEAR AB SCREEN (FRANCES) 07/2021 US ABDOMEN COMP WITH ELASTOGRAPHY 2021 Ferritin 01/17/2022 Alpha 1 Anti-trypsin 01/17/2022 Alkaline Phosphatase Isoenzyme 2 Liver Fibrosis Pnl 01/17/2022 Mitochondrial Antibody 01/17/2022 Smooth Muscle Antibody 01/17/2022 Future Test Test Name Order Date COLONOSCOPY 12/28/2010 COLONOSCOPY 05/03/2016 COLONOSCOPY 01/17/2022 Insurance Providers Payer Name Payer Address Payer Phone Subscriber Number Group Number Insured Name Patient Relationship to Insured Coverage Start Date Coverage End Date MEDICARE OF [place] [address] [place] [phone] [id number] JOHN HERZOG Self - patient is the insured [facility] [address] [place] [address] [phone] [id number] JOHN HERZOG Self - patient is the insured Medical (General) History Medical History History ICD Code Colonoscopy 02-08-2011 and 2 006--small tubular adenomas, lipoma, diverticulosis Hypertension Hyperlipidemia Depression Denies NM,DM,CVA,Lung disease,renal dise ase Afib--s/p successful ablation Hyperlipidemia Sleep apnea-uses CPAP Negative colonoscopy in 08/2016 Surgical History Surgery Date(Month/Year)
== END 2024-09-17 16:07 | disposition home or self-care (01) ==
LOC: HO.HMCH 15:19
DX: I48.91 Unspecified atrial fibrillation (principal); I10 Essential (primary) hypertension

== ENCOUNTER → 2024-09-17 15:18 | Outpatient (BNVA) | payer MEDICARE, OTHER, SELFPAY | DX: I10 Essential (primary) hypertension (principal); I48.91 Unspecified atrial fibrillation | CPT/HCPCS: 99212 ==

== ENCOUNTER → 2024-10-24 12:00 | Outpatient (BNVA) | payer MEDICARE, OTHER, SELFPAY | DX: Z13.89 Encounter for screening for other disorder (principal) | CPT/HCPCS: 99211 ==

== ENCOUNTER 2025-01-05 09:06 | Outpatient (REF) | payer MEDICARE, OTHER, SELFPAY ==
[2025-01-05 10:48] LABS: MANUAL DIFF FLAG NO
[2025-01-05 10:49] LABS: Hematocrit 39.1 % (42.0-52.0); Hemoglobin 12.9 g/dl (14.0-18.0); Imm Gran Abs Auto 0.00 X10*3/uL (0.00-0.03); Imm Gran Pct Auto 0.0 % (0.0-0.4); Lymphocytes Absolute Auto 1.2 X10*3/uL (1.2-4.9); Mean Corpuscular HGB Conc 33.0 g/dl (31.0-36.0); Mean Corpuscular Hemoglobin 30.3 pg (27.0-33.0); Mean Corpuscular Volume 91.8 fL (80.0-98.0); NRBC Abs Auto 0.000 X10*3/uL (0.0-0.012); NRBC Pct Auto 0.0 /100WBC (0.0-0.2); Platelet Count 200 X10*3/uL (160-400); Red Blood Count 4.26 X10*6/uL (4.60-5.80); White Blood Count 5.2 X10*3/uL (4.8-10.8)
[2025-01-05 10:53] LABS: INTERNATIONAL NORM RATIO 0.9 (0.9-1.1); Prothrombin Time 11.6 SEC (11.2-13.5)
[2025-01-05 11:24] LABS: Anion Gap 10 (12-20); Blood Urea Nitrogen 18 mg/dL (9-16); Calcium 9.2 mg/dL (8.4-10.2); Carbon Dioxide 28 mmol/L (22-29); Chloride 108 mmol/L (96-108); Estimated Glomerular Filt Rate > 60; Potassium 4.0 mmol/L (3.3-5.1); Sodium 142 mmol/L (135-145)
== END 2025-01-05 09:07 | disposition home or self-care (01) ==
LOC: HO.10HDL 09:06
PROVIDERS: Visit Provider Internal Medicine Cardiovascular Disease
DX: I48.91 Unspecified atrial fibrillation (principal)
CPT/HCPCS: 36415; 80048; 84443; 85025; 85610

== ENCOUNTER 2025-01-19 08:20 | Outpatient (AMB) | payer MEDICARE, OTHER, SELFPAY ==
[2025-01-19 08:25] VITALS: BP 140/78; PULSE 57; O2SAT 96; BMI 28.6
--- NOTE | 2025-01-19 08:25 | A.OFFPC_ITS ---
Vital Signs 01/19/25 08:25 Height 6 ft Weight 211 lb BMI 28.6 BP 140/78 H Blood Pressure Location Lt brachial Position Sitting Pulse 57 Pulse Source Pulse Oximeter Pulse Oximetry (%) 96 Oxygen Delivery Method Room Air Intake Visit Reasons: fu on htn and hld arnold from 12/02/24 Allergies No Known Allergies (No Known Allergies*) Allergy (Verified 01/19/25 08:34) Medication List - Last Reconciled 01/19/25 by Adia Christensen PA-C amlodipine 10 mg PO DAILY apixaban (Eliquis) 5 mg PO BID atorvastatin 20 mg PO DAILY citalopram 10 mg PO DAILY hydrochlorothiazide 12.5 mg PO DAILY lisinopril 20 mg PO BID multivitamin 1 tab PO DAILY Tobacco use date assessed: 09/17/24 Fall risk assessment: No Falls in past year Last assessed Fall Risk: 01/19/25 Dental Screening Dental Screen Date: 09/17/24 HPI fu on htn and hld arnold from 12/02/24 HPI Details 69-year-old male with past medical histo ry of hypertension, obstructive sleep apnea, history of AFib status post ablation, diabetes mellitus, hypercholesterolemia, anxiety last seen 09/2024 coming in for follow up. In review of the notes, patient was seen by Cardiology 11/17/2024 plan for cardioversion and ablation and started on amiodarone 200 mg b.i.d. and diltiazem was discontinued but continued on amlodipine. Presenting for a follow-up visit post-cardiac ablation for atrial fibrillation. He underwent a cardiac ablation last Sunday and was instructed to discontinue amiodarone and diltiazem, and restart amlodipine. Post-ablation, he experienced significant grogginess and difficulty walking for the first day, but reports feeling pretty good now. He denies any chest pain, shortness of breath, heart racing, lightheadedness, dizziness, or syncope since the procedure. The patient reports getting up to urinate 1 to 4 times per night, with incomplete emptying and a weak stream. He denies drinking water late, typically stopping before 8 p.m., and consumes no caffeine near bedtime. His last PSA test was about a year ago, and he was due for a repeat in October. [facility] Medical History Right inguinal hernia EDD (obstructive sleep apnea) Afib Depression High blood pressure High cholesterol Surgical History S/P hernia surgery History of cardiac radiofrequency ablation (RFA) (~2019) Hx of bilateral cataract extraction Hx of colonoscopy Social History Household Members: Spouse Housing: House Are you a primary career and transition teacher to a significant other at home: No Do you presently have visiting nurse or other home services: No 75 years or older and lives alone: No Alcohol intake: current Alcohol intake frequency: a few times a month Alcohol type: other Patient Tobacco Use Status: Never used Tobacco Tobacco use type: Cigarette e-Cigarette/Vaping Use: Never Used Second Hand Smoke Exposure: No service: No Current occupational status: 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 1. Little interest or pleasure in doing things: not at all 2. Feeling down, depressed, or hopeless: not at all 3. Trouble falling or staying asleep, or sleeping too much: not at all 4. Feeling tired or having little energy: not at all 5. Poor appetite or overeating: not at all 6. Feeling bad about yourself - or that you are a failure or have let yourself or your family down: not at all 7. Trouble concentrating on things, such as reading the newspaper or watching television: not at all 8. Moving or speaking so slowly that other people could have noticed. Or the opposite - being so fidgety or restless that you have been moving around a lot more than usual: not at all 9. Thoughts that you would be better off or of hurting yourself in some way: not at all Total score: 0 Depression Screening Interpretation: Negative Depression Screening Done: Yes Source: Developed by Drs. Wade Negrete, Salina Ortega, Nicho Bobby and colleagues, with an educational antonio from [employer]. Thrive Questionnaire Date Thrive assessed: 04/29/24 I am a: Patient What is your living situation today?: I have a steady place to live Within the past 12 months, did the food you bought not last and you didn't have the money to get more?: Never true Within the past 12 months, did you worry whether your food would run out before you got money to buy more?: Never true Do you have trouble paying for medicines?: No Do you have trouble getting transportation to medical appointments?: No Do you have trouble paying your heating and electricity bill?: No Do you have trouble taking care of your child, family member or friend?: No Do you have trouble with day-to-day activities such as bathing, preparing meals, shopping, managing finances, etc.?: No Are you currently unemployed and looking for a job?: No Are you interested in more education?: No Please select the resources that you would like help with: None Currently or been in a relationship where the following occur: No concerns reported THRIVE Score: 0 MADISYN-7 AMB Questionnaire MADISYN-7 Date MADISYN - 7 assessed: 09/17/24 Source: Developed by Drs. Wade Negrete, Salina Ortega, Nicho Bobby and colleagues, with an educational antonio from [employer]. Review of Systems Const Denies body aches, Denies chills, Denies fever(s), Denies headache(s) and Denies poor appetite Eyes Reports no additional complaints ENT Denies dizziness and Denies headache(s) Card Denies chest pain, Denies edema, Denies irregular heart rhythm, Denies lightheadedness and Denies dyspnea Resp Denies dyspnea GI Denies abdominal pain, Denies nausea and Denies vomiting Reports no additional complaints Musc Reports no additional complaints and Denies abnormal gait Skin/Breast Reports system reviewed and no additional complaints, except as documented Neuro Denies abnormal gait, Denies dizziness and Denies headache(s) Psych Reports no additional complaints Physical exam (Primary Care) Vital Signs: Last Vital Signs Pulse 57 01/19/25 08:25 BP 140/78 H 01/19/25 08:25 Pulse Ox 96 01/19/25 08:25 Oxygen Delivery Method Room Air 01/19/25 08:25 BMI result Body Mass Index 28.6 Tobacco/Smoking Status: Tobacco use Status Tobacco use date assessed 09/17/24 01/19/25 08:29 Patient Tobacco Use Status Never used Tobacco 01/19/25 08:29 Tobacco use type Cigarette 01/19/25 08:29 e-Cigarette/Vaping Use Never Used 01/19/25 08:29 PHQ-9: PHQ-9 Score PHQ-9: Total score 0 01/19/25 08:33 Depression Screening Interpretation: Negative Thrive Assessment: Date of Thrive Assessment Date Thrive assessed 04/29/24 01/19/25 08:29 Currently or been in a relationship where the following occur: No concerns reported Const General: cooperative, healthy appearing, comfortable and no acute distress Orientation/consciousness: patient oriented x3 HENMT Head: Yes normocephalic Ears: hearing grossly normal bilaterally General nose exam: Normal external nose present Eyes General: appearance normal, both eyes and all related structures Conjunctivae: conjunctivae normal Neck Neck: Yes full ROM and Yes no lymphadenopathy Resp Effort & Inspection: normal respiratory effort Auscultation: clear to auscultation bilaterally, no crackles, no rales, no rhonchi and no wheezes Cardio Rate: regular rate Rhythm: regular rhythm Skin General skin exam: no rashes or lesions noted Neuro General: patient oriented x3 Gait exam (Neuro): Normal gait present Extrem General: Yes normal to inspection, Yes full ROM and No edema Psych Affect: normal affect Attitude: cooperative Insight: Good insight present (Psych) Judgement: Good judgement present (Psych) Coding Level of Care Code Est Pt Level 3 (09328) Diagnoses Afib I48.91 High cholesterol E78.00 High blood pressure I10 Impaired glucose tolerance R73.02 EDD (obstructive sleep apnea) G47.33 Assessment & Plan Assessment & Plan (1) Afib: Comment: [facility] Cardiology Code(s): I48.91 - Unspecified atrial fibrillation Category: Medical Plan: The patient is status post a successful cardiac ablation last week. He has been taken off amiodarone and diltiazem as per cardiology. He will continue Eliquis, atorvastatin. A prescription for amlodipine has been sent to his pharmacy. He has a follow-up appointment with cardiology scheduled for February 11. Notes from the ablation procedure will be requested for review. (2) High cholesterol: Code(s): E78.00 - Pure hypercholesterolemia, unspecified Category: Medical Plan: Avoid foods that are high in cholesterol such as red meat, fried foods, eggs and baked goods. Triglyceride goal of less than 150 and LDL goal of less than 130. Continue on atorvastatin (3) High blood pressure: Code(s): I10 - Essential (primary) hypertension Category: Medical Plan: Continue on current blood pressure medication. Avoid salt intake and encourage healthy diet and regular exercise. Blood pressure is elevated today in the office he will continue to monitor at home as they has been within normal limits at home. Consider increasing hydrochlorothiazide to 25 mg (4) Impaired glucose tolerance: Code(s): R73.02 - Impaired glucose tolerance (oral) Category: Medical Plan: Decrease the amount of carbohydrates such as pasta, bread, rice, and potatoes and limit the amount of sweets. Although fruits are generally healthy they should be eaten in moderation as they are still high in sugar. (5) EDD (obstructive sleep apnea): Comment: with CPAP Code(s): G47.33 - Obstructive sleep apnea (adult) (pediatric) Category: Medical Plan: Uses CPAP faithfully at least 4 hours a night and benefits from this therapy. Plan This note was constructed using voice recognition software. While every effort has been made to ensure accuracy and statistical financial analyst, still areas may have been included sometimes these areas may affect the content or meeting of the given symptoms. Total time spent caring for the patient today was 20 minutes. This includes time spent before the visit reviewing the chart, time spent during the visit, and time spent after the visit and documentation. Patient was informed and verbally consented to the use of an ambient scribe for clinic note documentation during this visit. Orders: Orders Lipid Panel Today E78.00 - Pure hypercholesterolemia, unspecified Vitamin B12 and Folate Today Z13.21 - Encounter for screening for nutritional disorder Hemoglobin A1c Today R73.02 - Impaired glucose tolerance (oral) Vitamin D 25-OH Total Today Z13.21 - Encounter for screening for nutritional disorder PSA, Ultra Sensitive Today Z12.5 - Encounter for screening for malignant neoplasm of prostate Medications: New amlodipine 10 mg PO DAILY 90 tabs 0RF
--- OUTSIDE RECORDS SUMMARY | 2025-01-19 09:28 | XMS_ITS | Patient Health Record ---
Author Organization [facility] Address [address] [place] [address] Care Team Providers Care Accounting Consultant Name Role Phone Shilo (RETIRED) Chito RUIZ Primary Care Provide r Unavailable Wade Das Unavailable [phone] Allergies No Known Allergies Reason For Referral No Information Medications Medication SIG (Take, Route, Frequency, Duration) Notes Start Date End Date Status amLODIPine Besylate 5 MG Tablet 1 tablet Orally Once a day Active hydroCHLOROthiazide 12.5 MG Capsule 1 capsule Orally Once a day Active Citalopram Hydrobromide 10 M G Tablet 1 tablet Orally Once a day Active Lisinopril 20 MG Tablet 1 Orally QD Active Atorvastatin Calcium 10 MG Tablet 1 tablet Orally Once a day Active Immunizations Vaccine Route Administration Date Status Comme nts Influenza Unknown 10/13/2020 Administered Social History Social History Additional Details Category Social Info Options Details Miscellaneous: Marital status: 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 Section Notes: He does not smoke and drinks only occasional alcohol He does not smoke and drinks only occasional alcohol He does not smoke and drinks only occasional alcohol Problems Problem Type SNOMED Code ICD Code Onset Dates Problem Status W/U Status Risk Notes Problem Screening for malignant neoplasm of colon (544247433) Encounter for screening for malignant neoplasm of colon (Z12.11) Active confirmed Problem History of adenomatous polyp of colon (438148690) History of adenomatous polyp of colon (Z86.010) Active confirmed Problem Diverticular disease of colon (189070103) Diverticulosis of large intestine without perforation or abscess without bleeding (K57.30) Active confirmed Problem Screening for malignant neoplasm of rectum (467326271) Encounter for screening for malignant neoplasm of rectum (Z12.12) Active confirmed Problem Preprocedural examination (110564224450529) Preprocedural examination (Z01.818) Active confirmed Problem Long-term current use of antiplatelet drug (185137174172350) Long-term use of aspirin therapy (Z79.82) Active confirmed Problem Alkaline phosphatase raised (029051016) Elevated alkaline phosphatase level (R74.8) Active confirmed [...] Date MEDICARE OF [place] [address] [place] [address] [id number] JOHN HERZOG Self - patient is the insured [facility] [address] [place] [address] [id number] JOHN HERZOG Self - patient is the insured Medical (General) History Medical History History ICD Code Colonoscopy 02-08-2011 and 2 006--small tubular adenomas, lipoma, diverticulosis Hypertension Hyperlipidemia Depression Denies [place],DM,CVA,Lung disease,renal dise ase Afib--s/p successful ablation Hyperlipidemia Sleep apnea-uses CPAP Negative colonoscopy in 08/2016 Surgical History Surgery Date(Month/Year)
== END 2025-01-19 08:58 | disposition home or self-care (01) ==
LOC: HO.HMCH 08:21
DX: I48.91 Unspecified atrial fibrillation (principal); E78.00 Pure hypercholesterolemia, unspecified; I10 Essential (primary) hypertension; R73.02 Impaired glucose tolerance (oral); G47.33 Obstructive sleep apnea (adult) (pediatric)

== ENCOUNTER → 2025-01-19 08:20 | Outpatient (BNVA) | payer MEDICARE, OTHER, SELFPAY | DX: I48.91 Unspecified atrial fibrillation (principal); E78.00 Pure hypercholesterolemia, unspecified; R73.02 Impaired glucose tolerance (oral); G47.33 Obstructive sleep apnea (adult) (pediatric) | CPT/HCPCS: 99212 ==

== ENCOUNTER 2025-01-28 08:43 | Outpatient (REF) | payer MEDICARE, OTHER, SELFPAY ==
--- OUTSIDE RECORDS SUMMARY | 2025-01-28 09:09 | XMS_ITS | Clinical Summary ---
Author Organization [facility] Address [address] [place] [address] Phone Care Team Providers Care It Application Administrator Name Role Phone Adia Christensen Primary Care Provider [phone] Allergies Active Allergy Reactions Criticality Noted Date Comments Shellfish Derived Shortness of breath, Nausea And Vomiting High 01/14/2025 Medications apixaban (ELIQUIS) 5 mg tablet Take 1 tablet (5 mg total) by mouth 2 (two) times a day. Active amLODIPine (NORVASC) 10 mg tablet Take 1 tablet (10 mg total) by mouth 1 (one) time each day. 5 Active atorvastatin (LIPITOR) 20 mg tablet Take 1 tablet (20 mg total) by mouth at bedtime. 5 Active citalopram (CeleXA) 10 mg tablet Take 1 tablet (10 mg total) by mouth 1 (one) time each day. Active hydroCHLOROthia zide (MICROZIDE) 12.5 mg capsule Take 1 capsule (12.5 mg total) by mouth 1 (one) time each day in the morning. Active lisinopriL (PRINIVIL,ZESTR IL) 20 mg tablet Take 1 tablet (20 mg total) by mouth 2 (two) times a day. Active multivitamin tablet Take 1 tablet by mouth 1 (one) time each day. Active amiodarone (PACERONE) 200 mg tablet Take 1 tablet (200 mg total) by mouth 2 (two) times a day. 180 tablet 3 5 01/15/20 25 Discontinu ed(Stop Taking at Discharge) Active Problems Problem Noted Date Diagnosed Date HTN (hypertension) 11/24/2024 A-fib 11/17/2024 Palpitations 11/17/2024 Encounters Date Type Department Care Team Description 01/14/2025 10:18 AM EST Anesthesia Event [facility] [employer] Mechan[employer] [address] [place] [address] Jack Champion DO 01/14/2025 9:30 AM EST - 01/14/2025 11:30 AM EST Surgery [facility] [employer] [address] [place] [address] Osman Vidal MD Ablation Atrial Fibrillation [54407 (CPT )] 01/14/2025 8:13 AM EST - 01/14/2025 3:29 PM EST Hospital Encounter [facility] [employer] [address] [place] [address] Osman Vidal MD Atrial fibrillation, unspecified type (CMS/HCC V24, CMS/HCC V28) Discharge Disposition: Home or Self Care 12/19/2024 Telephone [facility] - [address] [place] [phone] Osman Vidal MD 11/27/2024 Telephone [facility] - [address] [place] [phone] Osman Vidal MD 11/24/2024 2:54 PM EDT Anesthesia Event [facility] [employer] [address] [place] [address] Genny Garrett MD 11/24/2024 12:51 PM EDT - 11/24/2024 11:59 PM EDT Hospital Encounter [facility] [employer] [address] [place] [address] Mell Hull MD Atrial fibrillation, unspecified type (CMS/HCC V24, CMS/HCC V28) Discharge Disposition: Home or Self Care 11/18/2024 Telephone [facility] - [address] [place] [address] Osman Vidal MD 11/17/2024 10:25 AM EDT Office Visit [facility] - [address] [place] [address] Osman Vidal MD Atrial fibrillation, unspecified type (CMS/HCC V24, CMS/HCC V28) (Primary Dx) from Last 3 Months Medical History Medical History Date Comments Depression Hypertension Hyperlipidemia Right inguinal hernia Social History Tobacco Use Types Packs/Day Years Used Date Smoking Tobacco: Never Assessed Sex and Gender Information Value Date Recorded Sex Assigned at Not on file Legal Sex Male 7:40 PM EST Gender Identity Not on file Sexual Orientation Not on file Last Filed Vital Signs Vital Sign Reading Time Taken Comments Blood Pressure 138/80 01/14/2025 3:15 PM EST Pulse 55 01/14/2025 3:15 PM EST Temperature 36.6 C (97.9 F) 01/14/2025 8:27 AM EST Respiratory Rate 14 01/14/2025 3:15 PM EST Oxygen Saturation 97% 01/14/2025 3:15 PM EST Inhaled Oxygen Concentration - - Weight 94.8 kg (209 lb) 01/14/2025 8:18 AM EST Height 182.9 cm (6') 01/14/2025 8:18 AM EST Body Mass Index 28.35 01/14/2025 8:18 AM EST Plan of Treatment Upcoming Encounters Date Type Department Care Team (Late st Contact Info) Description 02/11/2025 11:10 AM EST Office Visit [facility] - [address] [facility] [address] [place] [address] Kerri Emanuel NP [address] [place] [address] [address] [place] [address] Health Maintenance Due Date Last Done Comments Colorectal Cancer Screening: Colonoscopy 1954 DTaP,Tdap,and Td Vaccines (1 - Tdap) 1973 Pneumococcal Vaccine: 50+ Ye ars (1 of 1 - PCV) 2004 Zoster Vaccines (1 of 2) 2004 Depression Screening 02/13/2024 Abdominal Aortic Aneurysm (A AA) Screen 08/31/2024 Cholesterol Screening (Lipid Panel) 08/31/2024 Falls Risk Assessment 08/31/2024 Hepatitis C Screening 08/31/2024 Hypertension/CHF/CAD Annual BMP Blood Test 08/31/2024 Medicare Annual Wellness Visit 08/31/2024 Social Influencers of Health Screening 08/31/2024 COVID-19 Vaccine (1 - 2024-2 6 season) 2024 Influenza Vaccine (#1) 2024 10/13/2020 RSV Immunization [...] on patient's age to complete this topic Medical Devices Implanted Type Area Cut Off Man Device Identifier Shelf Expiration Date Model / Serial / Lot Device Clsur Vascade Mvp 6-12f Fem Art - [id number] - [id number] Implanted:Qty: 2 on 01/14/2025 by Osman Vidal MD at [facility] Vascular Closure Devices Left: Groin [employer] 10/13/2026 [id number] / [id number] / Plug Fem Artery Closure Vascade Mvp Collagen Ster - [id number] - [id number] Implanted:Qty: 1 on 01/14/2025 by Osman Vidal MD at [facility] Vascular Grafts Right: Groin [employer] [id number] 08/04/2026 [id number] / [id number] / Procedures Procedure Name Priority Date/Time Associated Diagnosis Comments ABLATION A-FIB Routine 01/14/2025 12:42 PM EST Atrial fibrillation, unspecified type (CMS/HCC V24, CMS/HCC V28) POCT ACTIVATED CLOTTING TIME, KAOLIN Routine 01/14/2025 11:57 AM EST POCT ACTIVATED CLOTTING TIME, KAOLIN Routine 01/14/2025 11:38 AM EST POCT ACTIVATED CLOTTING TIME, KAOLIN Routine 01/14/2025 11:22 AM EST POCT ACTIVATED CLOTTING TIME, KAOLIN Routine 01/14/2025 11:00 AM EST TH AN ENDOTRACHEAL(NO CHARGE) Routine 01/14/2025 10:41 AM EST TYPE AND SCREEN Routine 01/14/2025 8:46 AM EST EXTERNAL CLINICAL LAB Routine 01/05/2025 8:45 AM EST ECG ANNOTATED 11/25/2024 PROCEDURAL ECG STAT 11/24/2024 3:13 PM EDT CARDIOVERSION EXTERNAL Routine 3:03 PM EDT Atrial fibrillation, unspecified type (CMS/HCC V24, CMS/HCC V28) ECG 12-LEAD Routine 11/17/2024 11:40 AM EDT Atrial fibrillation, unspecified type (CMS/HCC V24, CMS/HCC V28) from Last 3 Months Results * ABLATION A-FIB (01/14/2025 12:42 PM EST) Anatomical Region Laterality Modality X-Ray Angiograph y Narrative 01/19/2025 12:02 PM EST Successful reisolation of the left upper pulmonary vein. Successful posterior wall isolation using pulsed field ablation. Clinical Background This 69-year-old man had a prior pulmonary vein isolation procedure a number years ago and now has recurrent symptomatic atrial fibrillation Procedure Details After obtaining written informed consent the patient was brought to the EP laboratory in the fasting state and was placed under general anesthesia per anesthesiology service. After usual sterile prep and local anesthesia with 1% lidocaine I placed 3 femoral venous sheaths using ultrasound guidance. I advanced a view flex ice catheter to the heart and examine the cardiac anatomy. A decapolar catheter was advanced into the coronary sinus using 3D mapping with AUBREE/NavX to minimize fluoroscopy. Ice images demonstrated there was a left atrial appendage with a fairly normal anatomy and no thrombus identified. I then performed a transseptal puncture using a [employer] flex cath across sheath advanced over a guidewire and withdrawn from the SVC until I tented the interatrial septum. After giving heparin by weight-based protocol across in the left atrium placing a guidewire out the left upper pulmonary vein and advancing the sheath and dilator into the mid chamber. I removed the dilator and wire and irrigated that sheath continuous with heparinized saline throughout the remainder of the procedure. Additional heparin was given to maintain an ACT above 300 seconds using an i-STAT ACT monitor. I then used an advisor grid catheter from [employer] [facility] [employer] to make a detailed AUBREE/NavX voltage and anatomical map of the left atrium identifying all critical structures. The pulmonary veins were largely isolated with a small amount of activation into the left upper pulmonary vein from the roof. There was some abnormal signal in the posterior wall. Atrial pacing failed to induce atrial flutter. I then placed a pulse select after the standard prep into the left atrium and delivered PFA lesions to the posterior wall from the roof to the area below the left and right inferior pulmonary veins. A total of 34 lesions were delivered. Subsequent mapping with the advisor grid catheter showed no activation of the posterior wall or any of the 4 pulmonary veins with exit block confirmed. I gave protamine 50 mg after which I removed the femoral venous sheath using Vascade closure devices and a 5-minute manual hold. The patient was extubated and returned recovery in stable condition with no immediate complications. us Osman Vidal MD CV ELECTROPHYSIOLOGY PROCEDURE S Final Result * (ABNORMAL) POCT activated clotting time,kaolin (01/14/2025 11:57 AM EST) Only the most recent of4 resultswithin the time period is included. Activated Clotting Time Kaolin 261(H) 74 - 137 sec 01/14/2025 3:03 PM EST [facility] Blood Venous blood specimen / Unknown 01/14/2025 11:57 AM EST 01/14/2025 3:05 PM EST Osman Vidal MD LAB POINT OF CARE TE ST DOCKED DEVICE UNSOLICITED RESULTS Final Result [facility] ([facility] [address] [place] [address], [place] [phone] * TH AN ENDOTRACHEAL(NO CHARGE) (01/14/2025 10:41 AM EST) Narrative Randall Luna CRNA - 01/14/2025 10:41 AM EST Randall Luna CRNA 01/14/2025 10:43 AM General Information and Staff Patient location during procedure: OR Resident/PARKING METER SERVICER: Randall Luna CRNA Performed: resident/SHABNAM/CAA Performed by: Randall Luna CRNA Authorized by: Jack Champion DO Intubation Additional Comments Unable to visualize VC with MAC 3, therefore switched to glide scope, ett placed easily Difficult airway Reason: elective Final Airway Details Successful airway: ETT Cuffed: yes Successful intubation technique: video laryngoscopy Adjuncts used in placement: intubating stylet Endotracheal tube insertion site: oral Blade: Magen Blade size: #3 ETT size (mm): 7.0 Cormack-Lehane Classification: grade I - full view of glottis Placement verified by: chest auscultation and capnometry Cuff volume (mL): 10 Measured from: lips ETT to lips (cm): 21 Final airway type: endotracheal airway Indications and Patient Condition Indications for airway management: anesthesia Sedation level: Yes Preoxygenated: yesSoft Tissue Damage: No Dentition Unchanged: Yes Patient position: sniffing MILS maintained throughout Mask difficulty assessment: 1 - vent by mask Jack Champion ANESTHESIA ORDERABLES Final Res ult * Type and screen (01/14/2025 8:46 AM EST) Pathologist [facility] [place] ABO Group A 01/14/2025 9:33 AM EST [facility] Rh Type Positive 01/14/2025 9:33 AM EST [facility] Antibody Screen Negative 01/14/2025 9:33 AM EST [facility] Blood Venous blood specimen / Unknown Venipuncture / Unknown 01/14/2025 8:46 AM EST 01/14/2025 8:52 AM EST Helen Smithysjohnk PARTITION ASSEMBLY MACHINE OPERATOR LAB BLOOD BANK TEST ORDERA BLES Final Result [facility] [address] [place] [address], * External clinical lab (01/05/2025 8:45 AM EST) Historical Provider MD LAB BLOOD ORDERABLES Mindy l Result * ECG-Annotated (11/25/2024) Provider Onbase MD ECG ORDERABLES Final Result * ECG 12 lead - Procedural (No Charge) (11/24/2024 3:13 PM EDT) Pathologist [facility] Ventricular Rate ECG 60 BPM GEMUSE Atrial Rate 60 BPM GEMUSE P-R Interval 226 ms GEMUSE QRS Duration 90 ms GEMUSE Q-T Interval 448 ms GEMUSE QTc 448 ms GEMUSE P Wave [place] 92 degrees GEMUSE R [place] 10 degrees GEMUSE T [place] 28 degrees GEMUSE ECG Interpretation Sinus rhythm with 1st degree A-V block Poor R wave progression Abnormal ECG When compared with ECG of 17-NOV-2024 10:53, Sinus rhythm has replaced Atrial fibrillation Vent. rate has decreased BY 29 BPM Questionable change in QRS axis Confirmed by Mike PEREA JAMES ([id number]) on 11/24/2024 5:06:50 PM GEMUSE 11/24/2024 3:13 PM EDT 11/24/2024 5:06 PM EDT us Mell Hull MD ECG ORDERABLES Final Result [facility] * Cardioversion external (11/24/2024 3:03 PM EDT) Anatomical Region Laterality Modality X-Ray Angiograph y us Osman Vidal MD CV CARDIAC SERVICES PROCEDURES Final Result * ECG 12 lead (11/17/2024 11:40 AM EDT) Ventricular Rate ECG 89 BPM GEMUSE Atrial Rate 375 BPM GEMUSE QRS Duration 90 ms GEMUSE Q-T Interval 358 ms GEMUSE QTc 435 ms GEMUSE R [place] 82 degrees GEMUSE T [place] 48 degrees GEMUSE ECG Interpretation Atrial fibrillation Abnormal ECG When compared with ECG of 31-AUG-2024 12:14, No significant change was found Confirmed by Mike VIDAL JOHN ([id number]) on 11/21/2024 8:06:58 AM GEMUSE 11/17/2024 10:5 3 AM EDT 11/21/2024 8:06 AM EDT us Osman Vidal MD ECG ORDERABLES Edited Result - Final GEMUSE from Last [address] [facility] [address] [place] [address] Care Teams It Application Administrator Relationship Specialty Start Date End Date Adia Christensen PA [address] [facility], [address] [place] [address] PCP - General 09/01/24
--- OUTSIDE RECORDS SUMMARY | 2025-01-28 09:09 | XMS_ITS | Patient Health Record ---
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 Section Notes: He does not smoke and drinks only occasional alcohol He does not smoke and drinks only occasional alcohol He does not smoke and drinks only occasional alcohol Problems Problem Type SNOMED Code ICD Code Onset Dates Problem Status W/U Status Risk Notes Problem Screening for malignant neoplasm of colon (426973826) Encounter for screening for malignant neoplasm of colon (Z12.11) Active confirmed Problem History of adenomatous polyp of colon (534675099) History of adenomatous polyp of colon (Z86.010) Active confirmed Problem Diverticular disease of colon (102354276) Diverticulosis of large intestine without perforation or abscess without bleeding (K57.30) Active confirmed Problem Screening for malignant neoplasm of rectum (373069669) Encounter for screening for malignant neoplasm of rectum (Z12.12) Active confirmed Problem Preprocedural examination (256190096980403) Preprocedural examination (Z01.818) Active confirmed Problem Long-term current use of antiplatelet drug (755797191758627) Long-term use of aspirin therapy (Z79.82) Active confirmed Problem Alkaline phosphatase raised (066590532) Elevated alkaline phosphatase level (R74.8) Active confirmed [...] Date MEDICARE OF [place] [address] [place] [address] [id number] JOHN HERZOG Self - patient is the insured [facility] [address] [place] [address] [id number] JOHN HERZOG Self - patient is the insured Medical (General) History Medical History History ICD Code Colonoscopy 02-08-2011 and 2 006--small tubular adenomas, lipoma, diverticulosis Hypertension Hyperlipidemia Depression Denies WA,DM,CVA,Lung disease,renal dise ase Afib--s/p successful ablation Hyperlipidemia Sleep apnea-uses CPAP Negative colonoscopy in 08/2016 Surgical History Surgery Date(Month/Year)
[2025-01-28 11:44] LABS: Folate 16.9 ng/mL (> or = 4.0); Vitamin B12 368 pg/mL (200-900)
[2025-01-28 13:55] LABS: Alanine Aminotransferase 19 U/L (0-40); Albumin Level 4.2 g/dL (3.5-5.0); Alkaline Phosphatase 316 U/L (39-117); Anion Gap 11 (12-20); Aspartate Amino Transferase 23 U/L (5-37); Blood Urea Nitrogen 16 mg/dL (9-16); Calcium 9.1 mg/dL (8.4-10.2); Carbon Dioxide 29 mmol/L (22-29); Chloride 106 mmol/L (96-108); Cholesterol 152 mg/dL (<200); Estimated Glomerular Filt Rate > 60; HDL Cholesterol 42 mg/dL (>40); Potassium 4.0 mmol/L (3.3-5.1); Sodium 142 mmol/L (135-145); Total Protein 7.2 g/dL (6.5-8.0); Triglycerides 117 mg/dL (<150)
== END 2025-01-28 08:44 | disposition home or self-care (01) ==
LOC: HO.10HDL 08:43
DX: Z00.00 Encounter for general adult medical examination without abnormal findings (principal); R73.02 Impaired glucose tolerance (oral); Z13.21 Encounter for screening for nutritional disorder; E78.00 Pure hypercholesterolemia, unspecified; Z12.5 Encounter for screening for malignant neoplasm of prostate
CPT/HCPCS: 36415; 80053; 80061; 82306; 82607; 82746; 83036; 84153